=== PATIENT | male | born 1965 | race Caucasian/White ===

== ENCOUNTER → 2017-01-27 | Outpatient (CLI) | payer OTHER ==
[~2017-01-27] MED LIST: LRT5 PO
--- NOTE | 2017-01-28 00:07 | MYOCARDIAL PERFUSION SCAN ---
NUCLEAR STRESS TEST STUDY REQUESTED BY: Dr. Zamarripa TYPE OF STUDY: ONE-DAY NUCLEAR MEDICINE TECHNETIUM-99M CARDIOLITE MYOCARDIAL PERFUSION SCAN. INDICATION: Chest pain. EKG: Baseline, normal sinus rhythm at ventricular rate of 60, possible septal infarct. STRESS EKG: The patient exercised for 9 minutes and 32 seconds achieving 11.8 METS and heart rate daron from 62-148 representing 87% of maximum predicted heart rate. There were no EKG changes consistent with ischemia. No significant arrhythmia. Blood pressure daron to 210/90. TECHNIQUE: For the stress portion of the study, 33.0 mCi of technetium-99m Cardiolite IV was injected at 1345 p.m. on 01/27/2017. Fifteen minutes following injection, imaging of the heart was performed in multiple projections. For the rest portion of the study, 10.4 mCi of technetium-99m Cardiolite was injected IV at 11:45 a.m. One hour following the injection, imaging of the heart was performed in the same projections. FINDINGS: Rotating raw images were reviewed in detail. There was minimal diaphragmatic attenuation. There was no significant gut or liver uptake impacting the inferior imaging border of the heart. No significant extra cardiac pathologic uptake. The short axis, vertical long axis, horizontal long axis images were reviewed in detail. There were no significant perfusion defects noted at rest or with stress. There was no evidence of visual TID LV size was normal with an end-diastolic volume of 127. LV function was normal with an EF of 55% and no regional wall motion abnormalities. IMPRESSION: 1. Normal myocardial perfusion scan with no evidence of exercise-induced ischemia. 2. Normal left ventricular size and function with an ejection fraction of 55% and no regional wall motion abnormalities. 3. Normal exercise EKG. 4. Above average functional capacity. Exercised 9 minutes and 32 seconds achieving 11.8 METS. MTDD
== END | disposition home or self-care (01) ==
LOC: C.NUCL 10:40
PROVIDERS: ATTEND Family Medicine
DX: R07.9 Chest pain, unspecified (principal)

== ENCOUNTER 2019-08-16 13:56 | Observation (INO) ==
[2019-08-16] MEDS ORDERED: HYDROmorphone INJ 1 MG/ML SYRINGE IV STA ×2 (14:19→15:59)
[2019-08-16] MEDS ORDERED: KETOROLAC 30 MG/ML VIAL IV STA (14:19)
[2019-08-16] MEDS ORDERED: CYCLOBENZAPRINE HCL 10 MG TAB PO STA (14:19)
[2019-08-16] MEDS ORDERED: DEXAMETHASONE **PF** INJ 10 MG/ML VIAL IV ONE (14:19)
--- NOTE | 2019-08-16 14:39 | Emergency Department Note ---
History of Present Illness General Chief Complaint: Back Injury/Pain History of Present Illness This patient is a pleasant 53-year-old male who presents to the emergency department via ambulance for evaluation of severe back pain that is radiating down the right leg. The patient has a history of chronic back pain. He had surgery on his lumbar spine approximately 10 years ago. He denies any trauma, however he thinks that he may have injured the back 2 days ago when he was lifting a heavy object. He has tried ibuprofen with minimal relief. Any movement makes the pain worse. He denies any weakness in his extremities. No urinary or bowel incontinence. No saddle paresthesias noted. No fever or recent illnesses. Home Medications Home Medications Medication Instructions Recorded Confirmed Type amlodipine 10 mg PO QAM 08/16/19 08/16/19 History losartan 100 mg PO QAM 08/16/19 08/16/19 History multivitamin [Daily Multi-Vitamin] 1 tab PO QAM 08/16/19 08/16/19 History acetaminophen 650 mg PO Q8H #60 tab 08/19/19 Rx dexamethasone [Decadron] 4 mg PO UD #20 tab 08/19/19 Rx ibuprofen 800 mg PO Q6H PRN #30 tab 08/19/19 Rx oxycodone 5 mg PO Q6H PRN #10 tab 08/19/19 Rx Allergies Allergy/AdvReac Type Severity Reaction Status Date / Time No Known Allergies Allergy Unverified 08/16/19 14:21 Past Med/Surg History Medical History ABCC8-related familial hyperinsulinism, autosomal dominant (Acute) Chronic back pain (Acute) Hyperlipidemia (Acute) Hypertension (Acute) Lumbar disc disease (Acute) Lumbar spinal stenosis (Acute) Prediabetes (Acute) Surgical History Previous back surgery S/P lumbar discectomy (10/18/10) L4 laminectomy with L4-L5 diskectomy, bilateral Family History Mother Coronary heart disease Stroke Myocardial infarction Father Hypertension Leukemia Sister Breast cancer Denies family history of Ovarian cancer Prostate cancer Lung cancer Colorectal cancer Social History (Reviewed 08/22/19 @ 13:28 by WALTER Gasca Preferred Language: Greenlandic Visual Impairment: No Limitations Hearing Ability: Normal Rn School Required: No Beliefs That Will Affect Care: None marital status: Current Living Situation: Spouse current occupational status: employed current occupation: [employer] Feels Safe at Home: Yes Smoking Status: Former smoker Second Hand Exposure: No ; Hx Alcohol Use: Yes Alcohol type: beer Hx Substance Use: No Childhood Exposure to Second-Hand Smoke: Yes Diet Comment: regular caffeine: Yes Dental Care, Regularly: Yes Physical Activity Frequency: 1-2 Times per Week Physical Activity Frequency Comment: walking Seatbelt Use: always Sunscreen Use: No Review of Systems A total of 10 systems reviewed and were otherwise negative Physical Exam Vital Signs Vital Signs - 24 hr 08/16/19 14:00 Temperature 36.7 C Temperature Source Oral Pulse Rate 74 Pulse Rhythm Regular Respiratory Rate 18 Respiratory Effort / Characteristics Non-Labored Spontaneous Respiratory Depth Normal Respiratory Pattern Regular Blood Pressure 162/86 H Blood Pressure Mean 111 Pulse Oximetry 95 Oxygen Delivery Method Room Air Sepsis Recent Fever Within 48 Hours No Sepsis New/Unexplained Change in Mental Status No Sepsis Action Taken by Nursing No Action Required Constitutional Significantly uncomfortable in appearance. Eyes EOM intact bilaterally ENMT external ear and nose normal, oropharynx normal Neck trachea midline Respiratory normal respiratory effort, lungs clear to auscultation Cardiovascular RRR, no murmur, no edema Gastrointestinal (Abdomen) normal bowel sounds, soft, nontender, no hepatosplenomegaly Musculoskeletal no cyanosis or clubbing, extremities motor strength 5/5 Exam is severely limited secondary to pain. Dorsiflexion, plantarflexion intact bilaterally. DP pulse +2 bilaterally. Skin no rashes, warm and dry Neurologic Alert and oriented x3. No focal motor deficits. Psychiatric Acting appropriately Course Course Patient was seen and examined Vital signs including blood pressure were reviewed medications list was verified with patient Medications and imaging ordered Upon reevaluation, the patient was still having significant pain. We discussed disposition options. I updated the patient's via phone. He was ordered more pain medication and still in discomfort. The case was discussed with the hospitalist service in addition to orthopedics. The patient will be evaluated by the hospitalist for likely inpatient pain management. Consultations Consultation #1: Dr. Washington-ortho Consultation #2: [facility] hospitalist Administered Medications Discontinued Medications Acetaminophen (Tylenol) 1,000 mg PO Q8 HORTENSIA Stop: 09/15/19 19:59 Last Admin: 08/19/19 13:59 Dose: 1,000 mg Documented by: [id number] Admin: 08/19/19 05:30 Dose: 1,000 mg Documented by: [id number] Admin: 08/18/19 22:02 Dose: 1,000 mg Documented by: [id number] Admin: 08/18/19 14:11 Dose: 1,000 mg Documented by: [id number] Admin: 08/18/19 06:13 Dose: 1,000 mg Documented by: [id number] Admin: 08/17/19 21:20 Dose: 1,000 mg Documented by: [id number] Admin: 08/17/19 14:11 Dose: 1,000 mg Documented by: [id number] Admin: 08/17/19 05:08 Dose: 1,000 mg Documented by: [id number] Admin: 08/16/19 20:07 Dose: 1,000 mg Documented by: [id number] Amlodipine Besylate (Norvasc) 10 mg PO QAM HORTENSIA Stop: 09/16/19 08:59 Last Admin: 08/19/19 08:39 Dose: 10 mg Documented by: [id number] Admin: 08/18/19 08:39 Dose: 10 mg Documented by: [id number] Admin: 08/17/19 09:13 Dose: 10 mg Documented by: [id number] Cyclobenzaprine HCl (Flexeril) 10 mg PO NOW STA Stop: 08/16/19 14:20 Last Admin: 08/16/19 14:43 Dose: 10 mg Documented by: [id number] Dexamethasone Sodium Phosphate (Decadron Pf) 10 mg IV NOW ONE Stop: 08/16/19 14:20 Last Admin: 08/16/19 14:43 Dose: 10 mg Documented by: [id number] Hydromorphone HCl (Dilaudid) 1 mg IV NOW STA Stop: 08/16/19 14:20 Last Admin: 08/16/19 14:43 Dose: 1 mg Documented by: [id number] Hydromorphone HCl (Dilaudid) 1 mg IV NOW STA Stop: 08/16/19 16:00 Last Admin: 08/16/19 16:04 Dose: 1 mg Documented by: [id number] Hydromorphone HCl (Dilaudid) 1 mg IV Q4H PRN PRN Reason: Pain Stop: 08/30/19 19:51 Last Admin: 08/18/19 12:36 Dose: 1 mg Documented by: [id number] Admin: 08/17/19 21:18 Dose: 1 mg Documented by: [id number] Admin: 08/17/19 09:16 Dose: 1 mg Documented by: [id number] Hydromorphone HCl (Dilaudid) 2 mg IV NOW STA Stop: 08/17/19 08:39 Last Admin: 08/17/19 11:21 Dose: 2 mg Documented by: [id number] Hydromorphone HCl (Dilaudid) Confirm Administered Dose 2 mg .ROUTE .STK-MED ONE Stop: 08/17/19 11:21 Last Admin: 08/17/19 11:41 Dose: Not Given Documented by: [id number] Dexamethasone Sodium Phosphate (12 mg/ Syringe) 3 mls @ 1 mls/min IV QAM HORTENSIA Stop: 09/16/19 08:59 Last Admin: 08/19/19 08:38 Dose: 1 mls/min Documented by: [id number] Admin: 08/18/19 08:38 Dose: 1 mls/min Documented by: [id number] Admin: 08/17/19 09:12 Dose: 1 mls/min Documented by: [id number] Ibuprofen (Motrin) 800 mg PO NOW STA Stop: 08/19/19 10:43 Last Admin: 08/19/19 11:18 Dose: 800 mg Documented by: [id number] Ketorolac Tromethamine (Toradol) 30 mg IV NOW STA Stop: 08/16/19 14:20 Last Admin: 08/16/19 14:43 Dose: 30 mg Documented by: [id number] Ketorolac Tromethamine (Toradol) 30 mg IV Q6H PRN PRN Reason: Pain Stop: 08/21/19 20:14 Last Admin: 08/18/19 16:47 Dose: 30 mg Documented by: [id number] Admin: 08/18/19 10:41 Dose: 30 mg Documented by: [id number] Admin: 08/18/19 03:45 Dose: 30 mg Documented by: [id number] Admin: 08/17/19 14:13 Dose: 30 mg Documented by: [id number] Admin: 08/17/19 04:55 Dose: 30 mg Documented by: [id number] Admin: 08/16/19 21:20 Dose: 30 mg Documented by: [id number] Lorazepam (Ativan) 1 mg PO NOW STA Stop: 08/17/19 08:39 Last Admin: 08/17/19 11:21 Dose: 1 mg Documented by: [id number] Lorazepam (Ativan) Confirm Administered Dose 1 mg .ROUTE .STK-MED ONE Stop: 08/17/19 11:20 Last Admin: 08/17/19 11:41 Dose: Not Given Documented by: [id number] Losartan Potassium (Cozaar) [address] [facility] Stop: 09/16/19 08:59 Last Admin: 08/19/19 08:38 Dose: 100 mg Documented by: [id number] Admin: 08/18/19 08:39 Dose: 100 mg Documented by: [id number] Admin: 08/17/19 09:12 Dose: 100 mg Documented by: [id number] Multivitamins (Multivitamin Tab) [address] [facility] Stop: 09/16/19 08:59 Last Admin: 08/19/19 08:38 Dose: 1 tab Documented by: [id number] Admin: 08/18/19 08:39 Dose: 1 tab Documented by: [id number] Admin: 08/17/19 09:12 Dose: 1 tab Documented by: [id number] Oxycodone HCl (Roxicodone Immediate Rel) 5 mg PO Q4 PRN PRN Reason: Severe Pain Stop: 09/01/19 19:43 Last Admin: 08/19/19 15:24 Dose: 5 mg Documented by: [id number] Admin: 08/19/19 08:37 Dose: 5 mg Documented by: [id number] Admin: 08/18/19 23:49 Dose: 5 mg Documented by: [id number] Medical Decision Making Differential Diagnosis lumbar radiculopathy, AAA, muscular strain, fracture, infection, lumbago, cauda equina and cord compression MDM Narrative This patient is a 53-year-old male that presents to the emergency department with severe back pain radiating down the right leg. He does have a history of chronic pain. On exam, he was slightly hypertensive. There are no infectious symptoms. He was neurovascularly intact. There is no significant trauma, however due to the amount of pain, imaging was ordered. Mild bulging disc as noted above. Unfortunately, I cannot get the patient comfortable enough to ambulate; therefore, orthopedic and hospitalist consultation was felt to be warranted. The patient will stay in the hospital for likely inpatient pain management and Ortho evaluation. Impression & Plan Lumbar spinal stenosis Discharge Plan Visit Data *Final* Discharge Date/Time: 08/16/19 19:18 Chief Complaint: Back Injury/Pain ED Provider: Karlos Barnhart ED Midlevel Provider: Valentina Weaver Discharge Problem: Lumbar spinal stenosis Patient Disposition: Admitted As Inpatient Discharge Instructions Interventions: ED Discharge Assessment Last Done: 08/16/19 19:18 Discharge Problem: Lumbar spinal stenosis Qualifiers: Neurogenic claudication status: without neurogenic claudication Qualified Code(s): M48.061 - Spinal stenosis, lumbar region without neurogenic claudication
--- NOTE | 2019-08-16 15:42 | CT Scan Report ---
CT lumbar spine wo con HISTORY: 53 years-old Male severe back pain hx surgery acute severe back pain COMPARISON: None TECHNIQUE: Multiple axial CT images of the lumbar spine were obtained without the use of IV contrast. A dose lowering technique was used consistent with the principals of NATALEE. FINDINGS: Mild nonspecific bilateral perinephric stranding. Mild thickening of the adrenal glands. No aortic an eurysm or adenopathy. Colonic diverticulosis. Paraspinal tissues are unremarkable. No prevertebral ed lobo or intraperitoneal collection. Straightening of the normal lumbar lordosis. Mild to moderate disc space narrowing at L4-L5 with moderate to severe disc space narrowing at L5-S1 with large posterior disc osteophyte complex formation is noted at these levels. Moderate to severe facet arthrosis of the mid and lower lumbar spine. No acute fracture or subluxation. Evaluation of the central canal and ne uroforamina is better assessed by MRI. T12-L1: No central canal or foraminal narrowing. L1-L2: Mild spondylitic spurring with small posterior annular disc bulge. Mild flattening of the vent ral thecal sac without significant central canal or foraminal narrowing. L2-L3: Spondylitic spurring with small circumferential annular disc bulge, ligamentum flavum thickeni ng and moderate facet arthrosis. Flattening of the ventral thecal sac results in mild central canal s tenosis with mild narrowing of the lateral recesses. Neural foramina appear patent. L3-L4: Mild disc space narrowing spondylitic spurring, circumferential annular disc bulge with modera te to severe facet arthrosis and ligamentum flavum thickening. Flattening of the ventral thecal sac r esults in mild central canal narrowing with mild narrowing of the lateral recesses. Neural foramina a ppear generally patent. L4-L5: Mild to moderate disc space narrowing with spondylitic spurring and large posterior disc osteo phyte complex formation. Ligamentum flavum thickening with moderate to severe facet arthrosis. There is a least mild central canal stenosis with moderate narrowing of the lateral recesses. Mild bilatera l foraminal stenosis. L5-S1: Moderate to severe disc space narrowing with prominent posterior disc osteophyte complex forma tion and severe facet arthrosis with ligamentum flavum thickening. There is flattening of the ventral thecal sac without significant central canal stenosis. Mild left and moderate right lateral recess n arrowing. No significant foraminal stenosis. IMPRESSION: 1. No acute fracture or subluxation. 2. Multilevel discogenic degenerative changes with ligamentum flavum thickening and facet arthrosis a s above. 3. No definite high-grade central canal or foraminal stenosis identified. ACT 112: Negative or not required by law. The above report was generated using voice recognition software. It may contain grammatical, syntax o r spelling errors. Electronically signed by: Abebe Mann M.D. 08/16/2019 3:40 PM
--- NOTE | 2019-08-16 18:53 | Hospitalist Progress Note ---
Date of Service August 16, 2019 Assessment & Plan (1) Back pain: Admit med surg Lumbar pain with radiculopathy to the right leg Pain control - Dilaudid, Toradol, acetaminophen, dexamethasone Consult ortho spine PT/OT (2) Hypertension: Continue home losartan, amlodipine (3) Severe obstructive sleep apnea: Can use home cpap (4) DVT prophylaxis: SCDs Supervising Physician Co-Signing Physician Notes I personally examined the patient and verified all yost points of history and exam, discussed case, and agree with decision making with Garth STROUD. pain in back and down leg. no groin numbness no loss of bowel or bladder vitals noted laying in bed with legs propped up on 2 couch cushions from home. no tenderness in piriformis region. 5/5 great toe raise b/l, ~4+/5 plantar flexion R, 5/5 L back pain/radiculopathy/mild plantar flexion weakness -concern on nerve compression -fortunately no clear "red flag" s/s - so hopefully will get better with steroids, pain control, PT/OT and once possible traction/decompression as outpt. spine consult given severity of baseline structural disease - but doubt will need immediate surgery. otherwise as above Subjective Mr. Cervantes presents with severe lower back pain that radiates down the back of his right leg. He has intermittent weakness and numbness that extends from his right foot to mid carias. He denies any aches, chills, fever, chest pain, palpitations, sob, cough, changes in bowels or bladder. He is only comfortable with his legs up over the couch cushions he brought from home and laying on his back. Pmhx: hypertension Family: degenerative disc, diabetes Social: lives with , chews tobacco a can per/week, drinks a couple of six packs on the weekends. Review of Systems Review of Systems: All systems reviewed & are unremarkable except as noted in HPI & below Physical Exam Physical Exam: General: no distress Eyes: normal inspection, PERLL Respiratory: chest non tender, clear to auscultation, normal breath sounds, no respiratory distress, no accessory muscle use Cardiac: regular rate and rhythm, no rub or gallop, no murmur, no edema, no jvd GI/: active bowel sounds, no abd pain or tenderness, soft, non distended Extremities: normal range of motion, normal strength, non tender Neuro: alert, moves all extremities, Psych:oriented x 3, normal mood and affect Skin: normal color, dry Results & Data Results & Data ([facility]) Vital Signs (Past 12 Hours) Vital Signs Temp Pulse Pulse Resp BP BP Pulse Ox 08/16/19 17:00 80 19 155/88 H 98 08/16/19 15:45 72 19 144/79 H 97 08/16/19 14:00 36.7 C 74 18 162/86 H 95 PG Care Time/CCT Total # of Minutes Spent Total Time Spent with Patient: Total time spent is greater than 50% in coordination of care (as documented) at patient's floor/unit and/or counseling patient: Coding Level of Care Code 71281 Subseq Hosp Care Lvl 3 Diagnoses Back pain M54.9 Hypertension I10 Severe obstructive sleep apnea G47.33 DVT prophylaxis Z29.9
[2019-08-16] MEDS ORDERED: ONDANSETRON INJ 2 MG/ML 2 ML VIAL IV PRN (19:52)
[2019-08-16] MEDS: ACETAMINOPHEN 500 MG TAB PO SCH (20:07)
[2019-08-16] MEDS: KETOROLAC 30 MG/ML VIAL IV PRN (21:20)
[2019-08-17] MEDS: KETOROLAC 30 MG/ML VIAL IV PRN ×2 (04:55→14:13)
[2019-08-17] MEDS: ACETAMINOPHEN 500 MG TAB PO SCH ×3 (05:08→21:20)
[2019-08-17] MEDS ORDERED: LORazepam 1 MG TAB PO STA (08:38)
[2019-08-17] MEDS ORDERED: HYDROmorphone INJ 2 MG/ML SYR/VIAL IV STA (08:38)
[2019-08-17] MEDS: MULTIVITAMIN TAB PO SCH (09:12)
[2019-08-17] MEDS: DEXAMETHASONE SOD PHOSPHATE IV SCH (09:12)
[2019-08-17] MEDS: LOSARTAN POTASSIUM 50 MG TAB PO SCH (09:12)
[2019-08-17] MEDS: AMLODIPINE BESYLATE 5 MG TAB PO SCH (09:13)
[2019-08-17] MEDS: HYDROmorphone INJ 1 MG/ML SYRINGE IV PRN ×2 (09:16→21:18)
--- NOTE | 2019-08-17 10:38 | Orthopedic Consultation ---
Date of Consultation August 17, 2019 Assessment & Plan (1) Lumbar spinal stenosis: At this time he is clear lumbar radiculopathy. CAT scan of the lumbar spine demonstrates evidence of multilevel spondylosis but I am unable to appreciate clear neural compression. We will then attempt an MRI of the lumbar spine hopefully today and make further conditions. Present on Admission?: Yes History of Present Illness Reason for Consultation: Back and right leg pain Attending Physician: Betito Lira, DO History of Present Illness This is a 53-year-old male that states that over the weekend he was lifting up a stroller to assist his . He felt a twinge of pain. Unfortunately over the next few days this progressed to severe back pain radiating to the right buttock posterior lateral thigh extending into his foot. Describes numbness involving the entire right foot. Left lower extremity is asymptomatic. He does have a history of undergoing lumbar surgery in 1999 and again in 2009. He states that this time he is unable to ambulate secondary to the pain in his leg gives way on him with any weightbearing. Allergies Allergy/AdvReac Type Severity Reaction Status Date / Time No Known Allergies Allergy Unverified 08/16/19 14:21 Home Medications Home Medications Medication Instructions Recorded Confirmed Type amlodipine 10 mg PO QAM 08/16/19 08/16/19 History losartan 100 mg PO QAM 08/16/19 08/16/19 History multivitamin [Daily Multi-Vitamin] 1 tab PO QAM 08/16/19 08/16/19 History Patient History Medical History ABCC8-related familial hyperinsulinism, autosomal dominant (Acute) Chronic back pain (Acute) Hyperlipidemia (Acute) Hypertension (Acute) Lumbar disc disease (Acute) Lumbar spinal stenosis (Acute) Prediabetes (Acute) Surgical History Previous back surgery S/P lumbar discectomy (10/18/10) L4 laminectomy with L4-L5 diskectomy, bilateral Family History Mother Coronary heart disease Stroke Myocardial infarction Father Hypertension Leukemia Sister Breast cancer Denies family history of Ovarian cancer Prostate cancer Lung cancer Colorectal cancer Social History Preferred Language: Gambian Visual Impairment: No Limitations Hearing Ability: Normal Duplicator Punch Operator Required: No Beliefs That Will Affect Care: None marital status: Current Living Situation: Spouse current occupational status: employed current occupation: construction mananger Other Information That Helps Us Care for You: No Feels Safe at Home: Yes Safety Concerns: Feels Safe At This Time Smoking Status: Former smoker Do You Dip or Chew Tobacco: Yes (one can per week) ; Second Hand Exposure: No ; Tobacco Cessation Education Requested by Patient: No Hx Alcohol Use: Yes Alcohol type: beer Hx Substance Use: No Childhood Exposure to Second-Hand Smoke: Yes Diet Comment: regular caffeine: Yes Dental Care, Regularly: Yes Physical Activity Frequency: 1-2 Times per Week Physical Activity Frequency Comment: walking Seatbelt Use: always Sunscreen Use: No Physical Exam Physical Exam: Patient is supine in bed with his legs elevated under cushions. This is his only comfortable position. He exhibits reasonable strength to plantar flexion dorsiflexion extensor pollicis longus bilaterally. He has significant tension signs with straight leg raising on the right contralateral signs on the left. Results & Data ([facility]) Vital Signs (Past 12 Hours) Vital Signs Temp Pulse Resp BP Pulse Ox 08/17/19 07:01 36.8 C 77 18 151/77 H 95 08/16/19 23:16 36.7 C 73 16 152/71 H 93
[2019-08-17] MEDS ORDERED: LORazepam 1 MG TAB ONE (11:19)
[2019-08-17] MEDS ORDERED: HYDROmorphone INJ 2 MG/ML SYR/VIAL ONE (11:20)
--- NOTE | 2019-08-17 12:37 | Magnetic Resonance Report ---
MR lumbar spine wo con CLINICAL HISTORY: 53 years-old Male with right leg pain. Acute severe low back pain with radiation i nto the right lower extremity COMPARISON: CT lumbar spine 08/16/2019 TECHNIQUE: Multiplanar, multi sequence MRI of the lumbar spine was performed without intravenous cont rast. FINDINGS: Motion degraded exam. No acute process of the imaged intra-abdominal paraspinal tissues. Conus medull ari terminates at the T12-L1 level. Signal within the cauda equina appears unremarkable. There is no acute fracture, subluxation or significant bone marrow edema. Minimal Modic type I endplate degenera tion at L4-L5. T12-L1: No central canal or neuroforaminal stenosis. L1-L2: Mild spondylitic spurring with mild facet arthrosis. No central canal or foraminal narrowing. L2-L3: Mild spondylitic spurring with small posterior annular disc bulge. Moderate facet arthrosis w ith ligamentum flavum thickening. No central canal or foraminal narrowing. L3-L4: Mild spondylitic spurring with small posterior annular disc bulge. Ligamentum flavum thickeni ng with moderate facet arthrosis. Flattening of the ventral thecal sac without significant central ca nal stenosis. Mild right foraminal narrowing. The left foramen is patent. L4-L5: Moderate disc space narrowing with spondylitic spurring and circumferential annular disc bulg e. There is a superimposed central/left paracentral annular fissure with disc extrusion which measure s up to 1.5 cm transversely and 1.2 cm in cranial caudal dimension extending superior to the inferior endplate of L4 (image 8 of the sagittal series). There is flattening of the ventral thecal sac witho ut significant central canal stenosis. There is however moderate to severe left lateral recess and mo derate right lateral recess narrowing. There is abutment and posterior displacement of the left L5 ne rve root. Moderate right and mild left foraminal narrowing. L5-S1: Moderate disc space narrowing with spondylitic spurring, circumferential annular disc bulge a nd small central disc protrusion. Flattening of the ventral thecal sac without significant central ca nal stenosis. Mild right lateral recess narrowing. The left lateral recess is patent. Bilateral neuro foramina are also patent. IMPRESSION: 1. Motion degraded exam. 2. At L4-L5 there is a disc bulge with superimposed central/left paracentral annular fissure with dis c extrusion which results in moderate to severe left and moderate right lateral recess narrowing. Add itionally, there is abutment with posterior displacement of the left L5 nerve root. Moderate right an d mild left foraminal narrowing at this interspace. 3. No high-grade central canal or foraminal narrowing identified. 4. No acute fracture, subluxation or bone marrow edema. ACT 112: Negative or not required by law. The above report was generated using voice recognition software. It may contain grammatical, syntax o r spelling errors. Electronically signed by: Abebe Mann M.D. 08/17/2019 12:36 PM
--- NOTE | 2019-08-17 18:03 | Hospitalist Progress Note ---
Date of Service August 17, 2019 Assessment & Plan (1) Back pain: lumbar radiculopathy - steroids, pain control, PT/OT, ortho eval appreciated -stable overall continue supportive care (2) Hypertension: Continue home losartan, amlodipine - BP acceptable (3) Severe obstructive sleep apnea: CPAP as per home (4) DVT prophylaxis: SCDs Admission and Anticipated Discharge Date Admission Date: August 16, 2019 Subjective feeling about the same. still intense R leg pain with more or less any movement, thought maybe sl L leg symptoms as well but only seems to be transient and not clearly present. still no loss of bowel or bladder, still no saddle anesthesia no other current complaints Review of Systems Review of Systems: All systems reviewed & are unremarkable except as noted in HPI & below Physical Exam Physical Exam: gen aao pleasant nad heent nc at mmm breathing unlabored no accessory muscles good effort. RLE diminished plantar flexion ~4/5 maybe 4+ (seems slightly weaker than yesterday) and diminished sensation base R great toe plantar surface. LLE intact, 5/5 strength, elsewhere RLE and LLE intact sensation Results & Data Results & Data ([facility]) Vital Signs (Past 12 Hours) Vital Signs Temp Pulse Resp BP Pulse Ox 08/17/19 15:27 97.7 F 83 18 145/75 H 93 08/17/19 07:01 98.2 F 77 18 151/77 H 95 PG Care Time/CCT Total # of Minutes Spent Total Time Spent with Patient: Total time spent is greater than 50% in coordination of care (as documented) at patient's floor/unit and/or counseling patient: Coding Level of Care Code 86100 Subseq Hosp Care Lvl 2 Diagnoses Back pain M54.9 Hypertension I10 Severe obstructive sleep apnea G47.33 DVT prophylaxis Z29.9
[2019-08-18] MEDS: KETOROLAC 30 MG/ML VIAL IV PRN ×3 (03:45→16:47)
[2019-08-18] MEDS: ACETAMINOPHEN 500 MG TAB PO SCH ×3 (06:13→22:02)
[2019-08-18] MEDS: DEXAMETHASONE SOD PHOSPHATE IV SCH (08:38)
[2019-08-18] MEDS: AMLODIPINE BESYLATE 5 MG TAB PO SCH (08:39)
[2019-08-18] MEDS: LOSARTAN POTASSIUM 50 MG TAB PO SCH (08:39)
[2019-08-18] MEDS: MULTIVITAMIN TAB PO SCH (08:39)
--- NOTE | 2019-08-18 10:16 | Orthopedic Progress Note ---
Date of Service August 18, 2019 Assessment & Plan (1) Lumbar disc disease: MRI lumbar spine demonstrates evidence of recurrent disc herniation and neurocompression most impressive at the L4-5 on the right. I discussion today with the patient and his reviewing his MRI findings and clinical course. At this time he is responding to rest and steroids. We will begin physical therapy today allow him to shower today. Hopefully can discharge home tomorrow. We will see him next week in my office. We may consider course of epidural injections. Ultimately if he fails to improve he may require revision decompression possible fusion L4-5 L5-S1. Present on Admission?: Yes Admission and Anticipated Discharge Date Admission Date: August 16, 2019 Subjective Patient pain is somewhat improved today. He is able to tolerate sitting in a chair. Still limited with ambulation. Physical Exam Physical Exam: On exam is in the chair at the bedside. Still significant tension signs straight leg raising on the right. Results & Data ([facility]) Vital Signs (Past 12 Hours) Vital Signs Temp Pulse Resp BP Pulse Ox 08/18/19 07:15 36.7 C 87 16 169/98 H 90 08/17/19 23:28 36.3 C L 71 16 153/84 H 93
[2019-08-18] MEDS: HYDROmorphone INJ 1 MG/ML SYRINGE IV PRN (12:36)
[2019-08-18] MEDS ORDERED: IBUPROFEN 600 MG TAB PO PRN (19:44)
--- NOTE | 2019-08-18 19:49 | Hospitalist Progress Note ---
Date of Service August 18, 2019 Assessment & Plan (1) Back pain: lumbar radiculopathy - steroids, pain control, PT/OT, ortho eval appreciated -improving --> transition to PO meds preferential, if able to have good pain control on PO then hopefully home tomorrow -anticipate possible need for LESI, decompression (2) Hypertension: Continue home losartan, amlodipine - BP acceptable control here (3) Severe obstructive sleep apnea: CPAP as per home (4) DVT prophylaxis: SCDs Admission and Anticipated Discharge Date Admission Date: August 18, 2019 Subjective feeling better still hurts a lot but able to walk reasonably - still quite painful though was able to get in chair ok still no groin numbness no loss of bowel or bladder R foot numbness about the same Review of Systems Review of Systems: All systems reviewed & are unremarkable except as noted in HPI & below Physical Exam Physical Exam: gen aao pleasant nad heent nc at mmm breathing unlabored no accessory muscles good effort neuro/ext cn 2-12 grossly intact gross motor/sensory intact; R toe sl stronger plantar flexion again - back to probably 4+/5, L still normal. sensation still diminished base R great toe. otherwise distal motor and sensory intact throughout. Results & Data Results & Data ([facility]) Vital Signs (Past 12 Hours) Vital Signs Temp Pulse Resp BP Pulse Ox 08/18/19 15:19 97.5 F L 73 18 138/71 96 PG Care Time/CCT Total # of Minutes Spent Total Time Spent with Patient: Total time spent is greater than 50% in coordination of care (as documented) at patient's floor/unit and/or counseling patient: Coding Level of Care Code 30767 Subseq Hosp Care Lvl 3 Diagnoses Back pain M54.9 Hypertension I10 Severe obstructive sleep apnea G47.33 DVT prophylaxis Z29.9
[2019-08-18] MEDS: OXYCODONE HCL IR 5 MG TAB (IMMEDIATE RELEASE) PO PRN (23:49)
[2019-08-19] MEDS: ACETAMINOPHEN 500 MG TAB PO SCH ×2 (05:30→13:59)
[2019-08-19] MEDS: OXYCODONE HCL IR 5 MG TAB (IMMEDIATE RELEASE) PO PRN ×2 (08:37→15:24)
[2019-08-19] MEDS: MULTIVITAMIN TAB PO SCH (08:38)
[2019-08-19] MEDS: DEXAMETHASONE SOD PHOSPHATE IV SCH (08:38)
[2019-08-19] MEDS: LOSARTAN POTASSIUM 50 MG TAB PO SCH (08:38)
[2019-08-19] MEDS: AMLODIPINE BESYLATE 5 MG TAB PO SCH (08:39)
[2019-08-19] MEDS ORDERED: IBUPROFEN 800 MG TAB PO STA (10:42)
--- NOTE | 2019-08-19 11:09 | Orthopedic Progress Note ---
Date of Service August 19, 2019 Assessment & Plan (1) Lumbar spinal stenosis: At this time we are going to attempt to discharge home today. I have scheduled him to follow-up with me on Thursday at my office. At that time we will hopefully initiate a course of epidural steroids and possible vp care management. Present on Admission?: Yes Admission and Anticipated Discharge Date Admission Date: August 18, 2019 Subjective Patient's right leg symptoms have gotten somewhat worse since yesterday. Physical Exam Physical Exam: Patient is in the chair. He is uncomfortable. He has reasonable strength testing. Discontinue tension signs in the right lower extremity. Results & Data ([facility]) Vital Signs (Past 12 Hours) Vital Signs Temp Pulse Resp BP Pulse Ox 08/19/19 07:32 36.6 C 63 20 164/73 H 94
--- NOTE | 2019-08-19 19:30 | Discharge Summary ---
Date of Service August 19, 2019 Principal Diagnosis lumbar radiculopathy Discharge Exam gen aao pleasant nad heent nc at mmm breathing unlabored no accessory muscles good effort strength about the same as yesterday ~4+/5 flex R great toe and plantar flexion otherwise ~5/5 intact Discharge Data Allergies Allergy/AdvReac Type Severity Reaction Status Date / Time No Known Allergies Allergy Unverified 08/16/19 14:21 Consultations 08/16/19 18:32 ED Decision to Admit Stat 08/16/19 20:31 Consult Orthopedic Surgery Routine Ordered Studies 08/16/19 14:19 CT lumbar spine wo con Stat 08/17/19 08:38 MR lumbar spine wo con Urgent Hospital Course (1) Back pain: lumbar radiculopathy - -improving, stable for home -steroids, scheduled tylenol, ibuprofen prn, oxycodone prn breakthrough (see instructions) -ortho f/u, presumed LESI unless improves dramatically, decompression (2) Hypertension: Continue home losartan, amlodipine - BP acceptable control here (3) Severe obstructive sleep apnea: CPAP as per home (4) DVT prophylaxis: SCDs Total Time Total Time Spent Total Time Spent (In Minutes): >30 Discharge Plan Discharge Items Patient Disposition: Home - Self-Care Reason For Visit: BACK PAIN Discharge Diagnosis: lumbar radiculopathy (see below) Activity: Resume your previous activity Activity Comment: as tolerated / be careful because of the pain Non-emergency contact: Primary Care Provider Call non-emergency contact if: you have any medication questions and your symptoms worsen Follow-up/Referrals: Roula Deleon DO [Primary Care Provider] - (Call office for discharge follow up appointment. ) Diet: Regular Addtl Attending Provider Instructions: lumbar radiculopathy -your symptoms and MRI all point to a pinched nerve causing the pain and weakness, but fortunately there are no "red flags" (see below) that would require immediate surgery -while the pain is terrible, it is tolerable right now - and a good percentage of people show surgery-saving levels of improvement with conservative care so we'll proceed as follows: -decadrone (dexamethasone) - a corticosteroid, this works to help reduce inflammation and swelling at the nerve, helping to alleviate nerve compression. the prescribed regimen is a fairly long course - my hope will be as you follow up with Dr Washington next week we may be able to taper the steroids more quickly; however, the Rx is written in case you need the whole duration -tylenol (acetaminophen) - an analgesic, it works "behind the scenes" to knock down the pain overall - in situations like yours, people don't often feel much relief from a dose of tylenol, but when we have a steady regimen of it around the clock, it often does a lot more than you would realize. generally at doses of 2000mg per day or less it's very well tolerated (above that it can be hard on your liver; also i'd have you hold off on any alcohol while you're on the high dosing of the tylenol) -ibuprofen - an anti-inflammatory, this works almost as a "combination" of the decadron (in that it can alleviate some of the inflammation and therefore go after some of the root cause of the pain) and the tylenol (in that anti- inflammatories have a good deal of simply pain-relieving qualities to them as well). we'll have you take it up to every 6 hours as needed, but because it's more potentially side-effect causing than the tylenol, we'll keep it "as needed" so there's a bit of a judgement call each time you need a dose. typically what we see first with side effects is upset stomach (it can cause ulcers - but usually not out of the blue - typically first people start to feel easier indigestion, then nausea or pain at the top of their abdomen, then develop into full blown ulcers) --- so if you feel any of that, back down on the ibuprofen and call dr deleon for further guidance. we'll also want you well hydrated (80 ounces of fluid a day) because it can theoretically interact with your losartan in ways that alter blood flow causing kidney problems -- but we usually only see this happen when people get dehydrated. -oxycodone - a potent narcotic painkiller, this is our "if you're really in trouble" safety net. it can cause drowsiness or constipation. definitely don't take it if you have to drive/work/etc - but if things are really rough it can buy you some relief -steroid injection - while the prescription of steroids helps a good deal, often when people have a pinched nerve like this a directed injection of steroids right where things are bad can help even more -- Dr Washington will be helping facilitate this through their office (he doesn't do it, but one of his partners does). if you're improving well on the medications alone you might not need to have this done, but given how rough things have been there's a pretty good chance they'll need to proceed -decompression - also in Dr Washington's office is a very good chiropractor - Dr Mcrae - who does decompression therapy. decompression is essentially a very specific, very controlled traction that can help open up the areas where the nerves come out. it feels a good deal like being on a traction table, but usually gets better outcomes than regular traction alone. Red Flags: -these would be signs/symptoms/problems that are concerning for serious nerve compression that might require more immediate surgery. as long as you don't have any of these, it is totally OK to continue to try to ride things out conservatively and you're getting better ---loss of bowel control or bladder control ---numbness in your groin, testicles, rectum ---almost " leg" numbness and weakness (what you've got right now is mostly, if not entirely, pain from the compressed nerve without much of any true motor weakness to go along with it - but if you were trying to move your leg and nothing was happening (or, by shades of barahona, you're trying to move it a lot and really only getting a little movement) then it would be cause for immediate evaluation as well. family history of spine arthritis -as we discussed, most of the time there seems to be more of a "prediliction" for folks in certain families to have spine disc disease and arthritis more than others. there is one dominant genetic syndrome - HLA B27 - that doesn't look like what we're seeing with you but is easy enough to send labwork to look for that it might be reasonable to send. otherwise, as we discussed, there are some families that are more prone to arthritises in certain areas, and other times it's more the family culture and habits that set them up more for arthritis. since we can't change genetics, i'd have you looking at what you can control - lifestyle. as you recover from this and are able to start to move more, there is tremendous benefit to be had in working towards regular light cardiovascular exercise (maybe 30 minutes a day) and core strengthening (to take strain off your low back muscles). the benefit from this is actually not just for your back - but also heavily for your blood pressure, sleep apnea, etc! Pending Studies at Discharge: No Stand-Alone Forms: My [facility], Opioid Pain Management, Smoking Cessation Medications and DC Order Prescriptions: New dexamethasone [Decadron] 4 mg tablet 4 mg PO UD Qty: 20 RF: 0 ibuprofen 800 mg tablet 800 mg PO Q6H PRN (Reason: pain) Qty: 30 RF: 0 oxycodone 5 mg tablet 5 mg PO Q6H PRN (Reason: severe pain) Qty: 10 RF: 0 acetaminophen 650 mg tablet extended release 650 mg PO Q8H Qty: 60 RF: 0 Continued multivitamin [Daily Multi-Vitamin] tablet 1 tab PO QAM RF: 0 amlodipine 10 mg tablet 10 mg PO QAM RF: 0 losartan 100 mg tablet 100 mg PO QAM RF: 0 Discharge Orders: Discharge Order (Routine); Ordered 08/19/19 Ordered By: Betito Lira Admission Data Admit Date/Time: 08/18/19 13:33 Attending Provider: Betito Lira Admit Provider: Maribell Vang Primary Care Provider: Roula Deleon Other Providers: Terrence Washington ; Maribell Vang Other Interventions: Discharge Summary Assessment (RN) Last Done: 08/19/19 15:29 DC Date/Time DO NOT enter until pt leaves facility: 08/19/19 15:58 Coding Level of Care Code D/C Day Management >30 mins Diagnoses Back pain M54.9 Hypertension I10 Severe obstructive sleep apnea G47.33 DVT prophylaxis Z29.9
== END 2019-08-19 15:58 | disposition home or self-care (01) ==
LOC: ED 13:56 → 3E 13:56

== ENCOUNTER 2019-10-18 08:34 | Inpatient (IN) ==
--- NOTE | 2019-09-28 20:02 | PAT Medication Instructions ---
Medication Instructions Date of Service September 28, 2019 Home Medications Medication Instructions Recorded ibuprofen 800 mg PO Q6H PRN #30 tab 08/19/19 oxycodone 5 mg PO Q6H PRN #10 tab 08/19/19 amlodipine 10 mg PO QAM losartan 100 mg PO QAM multivitamin [Daily Multi-Vitamin] 1 tab PO QAM ibuprofen 800 mg PO Q6H PRN oxycodone 5 mg PO Q6H PRN tramadol 50 mg PO Q8H PRN ASK your surgeon for instructions ibuprofen 800 mg PO Q6H PRN DO NOT take the morning of surgery losartan 100 mg PO QAM multivitamin [Daily Multi-Vitamin] 1 tab PO QAM Take morning of surgery With a small sip of water, OTHERWISE NOTHING TO EAT OR DRINK AFTER MIDNIGHT: amlodipine 10 mg PO QAM oxycodone 5 mg PO Q6H PRN (okay to take up to 4 hours prior to surgery if needed) tramadol 50 mg PO Q8H PRN (okay to take up to 4 hours prior to surgery if needed) Take evening before surgery oxycodone 5 mg PO Q6H PRN (if needed) tramadol 50 mg PO Q8H PRN (if needed) Other Notes If you have any questions please call us at [phone] or [phone] or [phone] or [phone]
--- NOTE | 2019-09-29 13:08 | Anesthesiology Consultation ---
Date of Service September 29, 2019 Assessment & Plan (1) Encounter for pre-operative examination: Per PAT assessment on 09/28: Travel screen- Lives in [place]. Travel only to [facility]. No known COVID-19 positive contacts. No current COVID-19 related symptoms. No hx of COVID-19 testing. Patient scheduled for preop protocol COVID- 19 testing. Chart Review Chart Review: Acceptable Risk for Surgery (pending surgeon-ordered PCP clearance scheduled 09/29 ([facility])) and Patient seen in Pre Admission Testing Teaching & Discussion Pre-Anesthesia Teaching/Discussion Notes: Instructed NPO after midnight before surgery,except medications with 15 cc of water. Medication instructions provided according to the PAT guidelines. History Surgery Operation Date: 10/18/19 10:05 Proposed Procedures p L4-S1 Decompression Fusion, Spinal Cord Monitoring - Terrence Washington DO Height/Weight Height: 6 ft Weight: 146.6 kg Allergies Allergy/AdvReac Type Severity Reaction Status Date / Time No Known Allergies Allergy Verified 09/27/19 11:53 Medications Home Medications Medication Instructions Recorded Confirmed Last Taken amlodipine 10 mg PO QAM 08/16/19 09/27/19 08/16/19 losartan 100 mg PO QAM 08/16/19 09/27/19 08/16/19 multivitamin [Daily Multi-Vitamin] 1 tab PO QAM 08/16/19 09/27/19 08/16/19 ibuprofen 800 mg PO Q6H PRN #30 tab 08/19/19 09/27/19 Unknown oxycodone 5 mg PO Q6H PRN #10 tab 08/19/19 09/27/19 Unknown tramadol 50 mg PO Q8H PRN 09/27/19 09/27/19 Unknown Past Medical History Medical History (Updated 09/29/19 @ 19:30 by Ksenia Thomas) Chronic back pain Degenerative disc disease Hyperlipidemia Hypertension Lumbar spinal stenosis Morbid obesity Nocturnal hypoxemia RONAK (obstructive sleep apnea) BIPAP Prediabetes Exercise / Class Metabolic Activity III < 4 Walking/Shop/Light housework (walker PRN) Past Family History Family History Mother Coronary heart disease Myocardial infarction Stroke Father Leukemia Hypertension Family history of diabetes mellitus Sister Breast cancer Denies family history of Ovarian cancer Prostate cancer Lung cancer Colorectal cancer Past Surgical History Surgical History History of colonoscopy History of discectomy LUMBAR AREA X 2 Hx of LASIK Past Anesthesia History No Family Hx of Anesthesia Complications and Other Patient reports post-op dyspnea/low O2 sats after colonoscopy at [facility] in 2019. Records scanned into [employer]. Per anesthesia records, MAC sedation used with no anesthesia complications. Post-op evaluation with 94% O2. Patient had known hx of RONAK but was not using a device at that time. Patient has subsequently been prescribed and is using a BIPAP. History of PONV No Hx of PONV and No Hx of Motion Sickness Social History Smoking Status: Former smoker tobacco type: smokeless tobacco Do You Dip or Chew Tobacco: Yes (1+ CAN PER WEEK/ADVISED NPO AM DOS) Smoking End Date: QUIT "A LONG TIME AGO" Hx Alcohol Use: Yes Alcohol type: beer alcohol intake frequency: a few times a month Hx Substance Use: No Review of Systems Patient denies chest pain, shortness of breath, fever, chills, cough, wheezing, palpitations. Physical Exam Vital Signs VITALS BP 136/78 P 69 TEMP 98.7 SP02 94%RA RESP 16 PHYSICAL Full neck and c-spine range of motion. Full TMJ range of motion. TMD 4 finger breaths Mallampati Score 2 Dentition: missing sides Lungs: clear throughout to auscultation Cardiac: regular rate and rhythm, no murmurs noted Spine: normal Carotid arteries: negative bruit Extremities: no edema Testing Laboratory Results 09/29/19 13:49 09/29/19 13:49 PT 10.7 Seconds (9.0-12.0) 09/29/19 13:49 INR 1.0 (0.9-1.1) 09/29/19 13:49 APTT 28.9 Seconds (21.0-31.0) 09/29/19 13:49 Urine Color Yellow 09/29/19 Unknown Urine Appearance Clear (Clear) 09/29/19 Unknown Urine pH 8.0 (4.5-7.5) H 09/29/19 Unknown Ur Specific Wilder 1.020 (1.000-1.030) 09/29/19 Unknown Urine Protein Negative (Negative) 09/29/19 Unknown Urine Glucose (UA) Negative (Negative) 09/29/19 Unknown Urine Ketones Negative (Negative) 09/29/19 Unknown Urine Nitrite Negative (Negative) 09/29/19 Unknown Ur Leukocyte Esterase Negative (Negative) 09/29/19 Unknown Blood Type O Positive 09/29/19 13:49 Antibody Screen NEGATIVE 09/29/19 13:49 Electrocardiogram Date: 09/29/19 NSR at 74bpm. unconfirmed report. Chest X-Ray Date: 09/29/19 Findings: + NAD
--- NOTE | 2019-09-29 14:17 | XRay Report ---
XR chest Pre-admission PA/Lat CLINICAL HISTORY: Preoperative chest COMPARISON STUDY: No previous studies for comparison. FINDINGS: The cardiac and mediastinal contours are normal. There is no evidence of focal pulmonary co nsolidation. There is no evidence of failure. No pleural effusions are visualized.[ IMPRESSION: No active disease in the chest. ACT 112: Negative or not required by law. Electronically signed by: Wili Madrid M.D. 09/29/2019 2:16 PM
[2019-09-29 15:21] LABS: Basophils # (auto) 0.02 K/uL (0-0.2); Basophils % (auto) 0.2 %; Eosinophils # (auto) 0.13 K/uL (0-0.5); Eosinophils % (auto) 1.2 %; Hematocrit (blood only) 44.5 % (42-52); Immature Granulocytes # (auto) 0.06 K/uL (0.00-0.02); Immature Granulocytes % (auto) 0.6 %; Lymphocytes # (auto) 2.65 K/uL (1.2-3.4); Mean Corpuscular Hemoglobin 30.4 pg (25-34); Mean Corpuscular Hgb Conc 33.7 g/dL (32-36); Mean Corpuscular Volume 90.3 fL (80-100); Monocytes # (auto) 0.94 K/uL (0.11-0.59); Monocytes % (auto) 8.9 %; Neutrophils # (auto) 6.81 K/uL (1.4-6.5); Neutrophils % (auto) 64.1 %; Platelet Count 340 K/uL (130-400); RDW Coefficient of Variation 14.7 % (11.5-14.5); RDW Standard Deviation 48.9 fL (36.4-46.3); Red Blood Count 4.93 M/uL (4.7-6.1); White Blood Count 10.61 K/uL (4.8-10.8)
[2019-09-29 15:21] LABS: Appearance Urine Clear (Clear); Bilirubin Urine Negative (Negative); Blood Urine Negative (Negative); Color Urine Yellow; Glucose Urine UA Negative (Negative); Ketones Urine Negative (Negative); Leukocyte Esterase Urine Negative (Negative); Nitrite Urine Negative (Negative); Protein Urine Negative (Negative); Urobilinogen Urine Negative (Negative)
[2019-09-29 15:30] LABS: Calcium 9.3 mg/dl (8.5-10.1); Creatinine Clr Calc Pharmacy 124.8 ml/min; Est GFR (African American) 96.3; Est GFR (Non-African American) 83.1; Potassium 4.2 mmol/L (3.5-5.1)
[2019-09-29 15:33] LABS: Partial Thromboplastin Time 28.9 Seconds (21.0-31.0); Prothrombin Time 10.7 Seconds (9.0-12.0)
--- NOTE | 2019-09-29 23:37 | Electrocardiogram Report ---
Test Reason : Blood Pressure : / mmHG Vent. Rate : 074 BPM Atrial Rate : 074 BPM P-R Int : 170 ms QRS Dur : 092 ms QT Int : 386 ms P-R-T Axes : 001 -25 008 degrees QTc Int : 428 ms Normal sinus rhythm Normal ECG No previous ECGs available Confirmed by Juan Alberto Galloway ([id number]) on 09/29/2019 11:37:20 PM Referred By: Terrence Washington Confirmed By:Juan Alberto Galloway
[~2019-10-18 08:34] MED LIST changes: +ACETAMINOPHEN 500 MG TAB PO SCH; +CEFAZOLIN 3000MG 72.5 ML IV SCH; +CeleBREX 200 MG CAP PO SCH; +GABAPENTIN 900 MG DOSE PO SCH; +HYDROmorphone INJ 2 MG/ML SYR/VIAL ONE; +LR 15ML/HR IV SCH; -LRT5 PO; +MIDAZOLAM HCL 1 MG/ML 2ML VIAL ONE; +fentaNYL citrate 100 MCG/2 ML VIAL ONE
[2019-10-18] MEDS ORDERED: LABETALOL HCL IV 5 MG/ML 20ML IV PRN (09:17)
[2019-10-18] MEDS ORDERED: ONDANSETRON INJ 2 MG/ML 2 ML VIAL IV PRN ×2 (09:17→15:36)
[2019-10-18] MEDS ORDERED: ATROPINE SULFATE 0.1 MG/ML 10ML SYR IV PRN (09:17)
--- NOTE | 2019-10-18 10:14 | History & Physical Bridge Note ---
Date of Service October 18, 2019 History & Physical Bridge Note I have examined the patient, reviewed the History & Physical and in the interval since the performance of the History & Physical I have noted the following changes of clinical significance: no changes noted
--- NOTE | 2019-10-18 10:15 | History & Physical Report ---
Date of Service October 18, 2019 Assessment & Plan (1) Neurogenic claudication due to lumbar spinal stenosis: L4-S1 decompression fusion Present on Admission?: Yes History of Present Illness Chief Complaint: Back and bilateral leg pain Primary Care Provider: Roula Zamarripa DO This is a 53-year-old male who presents with chronic persistent back and leg pain. After failing extensive course of nonoperative care is here for surgical intervention. Allergies Allergy/AdvReac Type Severity Reaction Status Date / Time No Known Allergies Allergy Verified 10/18/19 08:58 Home Medications Home Medications Medication Instructions Recorded Confirmed Type amlodipine 10 mg PO QAM 08/16/19 10/18/19 History losartan 100 mg PO QAM 08/16/19 10/18/19 History multivitamin [Daily Multi-Vitamin] 1 tab PO QAM 08/16/19 10/18/19 History ibuprofen 800 mg PO Q6H PRN #30 tab 08/19/19 10/18/19 Rx tramadol 50 mg PO Q8H PRN 09/27/19 10/18/19 History oxycodone 5 mg PO Q8H PRN 10/18/19 10/18/19 History Past Med/Surg History Family History Mother Coronary heart disease Myocardial infarction Stroke Father Leukemia Hypertension Family history of diabetes mellitus Sister Breast cancer Denies family history of Ovarian cancer Prostate cancer Lung cancer Colorectal cancer Social History Preferred Language: Occitan Visual Impairment: No Limitations Hearing Ability: Normal Quill Skinner Required: No Beliefs That Will Affect Care: None marital status: Current Living Situation: Spouse current occupational status: employed current occupation: [employer] Feels Safe at Home: Yes Safety Concerns: Feels Safe At This Time Smoking Status: Former smoker Tobacco Type: smokeless tobacco ; Do You Dip or Chew Tobacco: Yes (1+ CAN PER WEEK/ADVISED NPO AM DOS) ; Smoking End Date: QUIT "A LONG TIME AGO" ; Second Hand Exposure: Yes ( A CHILD) ; Tobacco Cessation Education Requested by Patient: No Hx Alcohol Use: Yes Alcohol type: beer Alcohol Intake Frequency: Weekly Hx Substance Use: No Childhood Exposure to Second-Hand Smoke: Yes Diet Comment: regular caffeine: Yes Dental Care, Regularly: Yes Physical Activity Frequency: 1-2 Times per Week Physical Activity Frequency Comment: walking Seatbelt Use: always Sunscreen Use: No Physical Exam Physical Exam: Patient is alert and oriented. He has weakness to testing of the right lower extremity compared to the left. Heart is regular rate and rhythm. Lungs clear to auscultation. Results & Data Vital Signs (Past 12 Hours) Vital Signs Temp Pulse Resp BP Pulse Ox 10/18/19 09:14 36.8 C 82 20 144/89 H 95
[2019-10-18] MEDS ORDERED: BUPIVACAINE/EPINEPHRINE 0.25% 1:200,000 30 ML VIAL ONE (10:34)
[2019-10-18] MEDS ORDERED: BACITRACIN INJ 50,000 UNIT VIAL ONE (10:34)
[2019-10-18] MEDS ORDERED: FLOSEAL HEMOSTATIC MATRIX 10ML TOP ONE (11:41)
[2019-10-18] MEDS ORDERED: DEXAMETHASONE SOD INJ 4 MG/ML VIAL ONE (11:52)
[2019-10-18] MEDS ORDERED: GLYCOPYRROLATE 0.2 MG/ML VIAL ONE (11:52)
[2019-10-18] MEDS ORDERED: LARYING-O-JET KIT (LTA) ONE (11:52)
[2019-10-18] MEDS ORDERED: PROPOFOL IV EMULSION 10 MG/ML 20 ML VIAL IV ONE (11:52)
[2019-10-18] MEDS ORDERED: ONDANSETRON INJ 2 MG/ML 2 ML VIAL ONE (11:52)
[2019-10-18] MEDS ORDERED: NEOSTIGMINE METHYLSULFATE 1 MG/ML 10ML VIAL ONE (11:52)
[2019-10-18] MEDS ORDERED: LIDOCAINE HCL 2% 2 ML VIAL/AMP(20MG/ML) INFIL ONE (11:52)
[2019-10-18] MEDS ORDERED: ROCURONIUM BROMIDE 10 MG/ML 5 ML VIAL IV ONE (11:52)
[2019-10-18] MEDS ORDERED: SURGICEL ABSORB HEMOSTAT 2IN X 14IN TOP ONE (13:06)
[2019-10-18] MEDS ORDERED: fentaNYL citrate 100 MCG/2 ML VIAL ONE (13:18)
--- NOTE | 2019-10-18 13:40 | Operative Report ---
Post Operative Report Pre & Post Diagnosis Operation Date: 10/18/19 10:05 Pre-Op Diagnosis: Lumbar spinal stenosis with recurrent disc herniation and radiculopathy. Morbid obesity Post-Op Diagnosis: Same I identified the patient and participated in the time-out.: Yes Procedure Operation Date: 10/18/19 10:05 Actual Procedures p L4-S1 Decompression Fusion, Spinal Cord Monitoring - Terrence Washington DO Surgeon Terrence Washington DO Director Security Management Vilma Thao Estimated Blood Loss 700 Findings See Below The patient is 6 foot tall weighing over 145 kg with a BMI in excess of 43. The patient's body habitus combined with an EBL of greater than 700 cc created significant technical difficulty adding at least 50% increase to the operative time. Specimens None Indications This is a 53-year-old male presents with above-mentioned diagnosis after failing extensive course of nonoperative care is here for surgical invention. Description of Procedure Patient was met with identified informed consent obtained. Patient was then taken to the operative suite underwent an patient placed in a prone position the Ted table on top of the David frame. All bony prominences well-padded eyes inspected to ensure no external pressure placed upon them. This point the lumbar spine was prepped and draped in normal sterile fashion. Sharp dissection with the assistance of Bovie cautery was performed down to and exposing the remaining lamina and transverse processes of L4-L5 and sacral ala bilaterally. I then performed a revision decompression medial facetectomies at the L3-L4, L4- L5 and L5-S1 levels addressing severe lateral recess and foraminal disease. Marked scarring was appreciated along all the roots. Pedicle screws were then placed in L4-L5 and S1 levels bilaterally with assistance of fluoroscopy and appropriately sized lionel placed. By way of a transforaminal approach on the right complete discectomy of L5-S1 was performed endplates curetted to subcortical bleeding bone and a 9 x 26 mm peek cage filled with osteo-bone graft tapped in position. Then proceeded to L [address] of a transforaminal portion radically discectomy performed endplates curetted to subcortical and bone and a 11 x 26 mm peek cage filled with osteo-bone graft ta pped in position. The rods were then locked in final position bilaterally. The transverse processes of L4-L5 and sacral ala burred to subcortical bleeding bone. Infuse collagen sponge mass graft local autograft was then placed in the posterior lateral gutters. 15 round RIP drain inserted. The incision was then closed with 1 Vicryl the fascia 2-0 Vicryl subcutaneously and 4 Monocryl for final skin closure. Steri-Strip sterile dressing was placed. Patient will continue PACU stable condition. Please note Vilma Thao was present at the entire procedure involved the patient positioning complex portions of the surgery and final skin closure. Lastly spinal cord monitoring was utilized that the procedure and no changes noted. I attest to the content of the Intraoperative Record and any orders documented therein. Any exceptions are noted below.
--- NOTE | 2019-10-18 13:57 | Fluoroscopy Report ---
INTRAOPERATIVE RADIOGRAPHS CLINICAL HISTORY: L4-S1 spinal fusion. Fluoroscopy time: 34 seconds. FINDINGS: 3 spot fluoroscopic views of the lumbar spine are presented. There has been discectomy at L 4-L5 and L5-S1 with laminectomy and posterior fusion from L4-S1. Interpedicular screws are present at all levels. The orthopedic hardware appears intact. IMPRESSION: Intraoperative images from L4-S1 spinal fusion as above. Electronically signed by: Chuy Garcia M.D. 10/18/2019 1:55 PM
[2019-10-18] MEDS ORDERED: LABETALOL HCL IV 5 MG/ML 20ML IV ONE (13:58)
[2019-10-18] MEDS: HYDROmorphone INJ 1 MG/ML SYRINGE IV PRN ×3 (14:37→17:22)
--- NOTE | 2019-10-18 14:45 | Anesthesiology Progress Note ---
Date of Service October 18, 2019 Anesthesia Post Procedure Vital Signs Vital Signs: Temp Pulse Pulse Resp BP Pulse Ox 10/18/19 14:35 83 19 159/82 H 94 10/18/19 14:25 72 16 157/77 H 95 10/18/19 14:15 76 17 161/82 H 96 10/18/19 14:05 64 14 128/83 94 10/18/19 13:56 36.2 C L 72 18 175/94 H 94 10/18/19 09:14 36.8 C 82 20 144/89 H 95 Pain Intensity Right Leg: Pain Intensity: 6 Bilateral Lower Leg: Pain Intensity: 7 Transfer of Care Handoff Completed per policy Notes Mental Status: alert / awake / arousable Patient Amnestic to Procedure: Yes Nausea / Vomiting: adequately controlled Pain: adequately controlled Airway Patency, RR, SpO2: stable & adequate BP & HR: stable & adequate Hydration State: stable & adequate Anesthetic Complications: no major complications apparent
[2019-10-18] MEDS ORDERED: bisacodyL 10 MG SUPP PR PRN (15:36)
[2019-10-18] MEDS ORDERED: METOCLOPRAMIDE HCL INJ 5 MG/ML 2 ML VIAL IV PRN (15:36)
[2019-10-18] MEDS ORDERED: ONDANSETRON 4 MG OD TAB PO PRN (15:36)
[2019-10-18] MEDS ORDERED: FAMOTIDINE 20 MG TAB PO PRN (15:36)
[2019-10-18] MEDS ORDERED: DO NOT ADMINISTER FLU VACCINE PRN (15:36)
[2019-10-18] MEDS ORDERED: NALOXONE HCL 0.4 MG/1 ML VIAL/CARP IV PRN (15:36)
[2019-10-18] MEDS ORDERED: LORazepam 0.5 MG/1 ML VIAL IV PRN (15:36)
[2019-10-18] MEDS ORDERED: MAGNESIUM HYDROXIDE SUSP 30 ML UDC PO PRN (15:36)
[2019-10-18] MEDS ORDERED: ACETAMINOPHEN 1,000 MG/100 ML VIAL IV PRN (15:36)
[2019-10-18] MEDS ORDERED: ALUMINUM/MAGNESIUM SUSP 30 ML UDC PO PRN (15:36)
[2019-10-18] MEDS ORDERED: PROMETHAZINE HCL 12.5 MG in SODIUM CHLORIDE 0.9% 50 ML IV PRN (15:36)
[2019-10-18] MEDS ORDERED: SOD PHOSPHATE/SOD BIPHOSPHATE ENEMA 132 ML BTL PR PRN (15:36)
[2019-10-18] MEDS ORDERED: HYDROmorphone INJ 0.5 MG/0.5 ML SYR IV PRN (15:36)
[2019-10-18] MEDS ORDERED: LORazepam 0.5 MG TAB PO PRN (15:36)
[2019-10-18] MEDS ORDERED: DO NOT ADMINISTER PNEUMOCOCCAL VACCINE PRN (15:36)
[2019-10-18] MEDS: CEFAZOLIN 2000MG 2,000 MG/15 ML SYR IV SCH ×2 (15:38→17:24)
[2019-10-18] MEDS: LACTATED RINGER'S 1,000 ML IV SCH ×2 (15:45→22:15)
--- NOTE | 2019-10-18 15:56 | Hospitalist Consultation ---
Date of Consultation October 18, 2019 Assessment & Plan (1) Neurogenic claudication due to lumbar spinal stenosis: (2) Degenerative disc disease: - Pain management, bowel regimen - PT/OT consults - Follow am CBC to monitor for acute blood loss - Continue IV fluids as ordered by primary team (3) Hypertension: -Continue losartan 100 mg every morning starting tomorrow, was held this morning prior to surgery, continue amlodipine 10 mg qam, last taken today (4) Hyperlipidemia: -Patient is not on statin therapy, lipids to be followed by PCP -Patient notes his PCP has asked him to go on a statin in the past however he has been reluctant to do so as he "is not a pill person", he plans to lifestyle modify with diet and exercise (5) Prediabetes: -A1c of 6.3 in February 2019, will check with a.m. labs -Would encourage diet and exercise upon discharge (6) Severe obstructive sleep apnea: -Continue BiPAP at bedtime - brought his own in from home, COVID negative as he is a surgical candidate, can use (7) DVT prophylaxis: - hilton glynn CODE: Full code Dispo: From home, likely to remain in the hospital x 1-2 days Thank you for involving us in the care of Mr. Cervantes. Please do not hesitate to call with questions or concerns. At this time medicine service will follow along. Supervising Physician Co-Signing Physician Notes Patient was seen and examined independently I discussed the case with Kavita Pascual PAC I reviewed pertinent past medical social family history and also the plan of care and agree with the plan of care. Patient status post lumbar spinal surgery for neurogenic claudication. Patient will continue his home noninvasive positive pressure ventilation. Patient also maintains losartan for hypertension and amlodipine. If his blood pressure is low this could be held. Although history of dyslipidemia is not on statins and a history of prediabetes he is not typically on medications at home but will be covered with a sliding scale while here. His last hemoglobin A1c was 6.3 February and if his blood sugars are elevated because of perioperative steroids we will consider carbohydrate conservative diet. Physical exam shows him to be in good condition pain is controlled heart is regular and lungs are clear Any exceptions will be noted below History of Present Illness Reason for Consultation: Medical management Requesting Physician: Dr. Washington Attending Physician: Terrence Washington, DO History of Present Illness This is a 53-year-old male with PMHx of HTN, HLD, DJD, RONAK on BiPAP HS, morbid obesity with BMI of 43.5, prediabetes with A1c = 6.3 in February 2019, who presents for elective L4-S1 decompression fusion of the lumbar spine by Dr. Washington on 10/18/2023 recurrent disc herniation and radiculopathy. Pt reports doing well overall but that he has some left leg pain since the surgery and is feeling it a little bit more around the incision. His right leg feels great. He denies any numbness or tingling. He can move his toes, ankles, knees and at the hips bilaterally. He reports having gained about 40 pounds in the past 2 years, and plans to modify his diet and exercise more after his back heals. He has brought his home CPAP/BiPAP machine with him, which he uses at night for sleep apnea. Allergies Allergy/AdvReac Type Severity Reaction Status Date / Time No Known Allergies Allergy Verified 10/18/19 08:58 Home Medications Home Medications Medication Instructions Recorded Confirmed Type amlodipine 10 mg PO QAM 08/16/19 10/18/19 History losartan 100 mg PO QAM 08/16/19 10/18/19 History multivitamin [Daily Multi-Vitamin] 1 tab PO QAM 08/16/19 10/18/19 History ibuprofen 800 mg PO Q6H PRN #30 tab 08/19/19 10/18/19 Rx tramadol 50 mg PO Q8H PRN 09/27/19 10/18/19 History oxycodone 5 mg PO Q8H PRN 10/18/19 10/18/19 History Patient History Family History Mother Coronary heart disease Myocardial infarction Stroke Father Leukemia Hypertension Family history of diabetes mellitus Sister Breast cancer Denies family history of Ovarian cancer Prostate cancer Lung cancer Colorectal cancer Social History Preferred Language: Gibraltarian Visual Impairment: No Limitations Hearing Ability: Normal Laceworker Required: No Beliefs That Will Affect Care: None marital status: Current Living Situation: Spouse current occupational status: employed current occupation: [employer] Feels Safe at Home: Yes Safety Concerns: Feels Safe At This Time Smoking Status: Former smoker Tobacco Type: smokeless tobacco ; Do You Dip or Chew Tobacco: Yes (1+ CAN PER WEEK/ADVISED NPO AM DOS) ; Smoking End Date: QUIT "A LONG TIME AGO" ; Second Hand Exposure: Yes ( A CHILD) ; Tobacco Cessation Education Requested by Patient: No Hx Alcohol Use: Yes Alcohol type: beer Alcohol Intake Frequency: Weekly Hx Substance Use: No Childhood Exposure to Second-Hand Smoke: Yes Diet Comment: regular caffeine: Yes Dental Care, Regularly: Yes Physical Activity Frequency: 1-2 Times per Week Physical Activity Frequency Comment: walking Seatbelt Use: always Sunscreen Use: No Review of Systems Review of Systems: Constitutional: No fever, sweats or chills Eyes: No diplopia, no worsening or blurred vision ENT: normal hearing, no trouble swallowing Respiratory: No cough, sputum, dyspnea at rest or on exertion Cardiovascular: No chest pain, tightness or palpitations Abdomen: No pain, nausea, vomiting, diarrhea or constipation : Colón catheter in place draining clear yellow urine Musculoskeletal: + As per HPI, no joint pain, calf pain, swelling Neurologic: No weakness, numbness/tingling, or balance problems, + has brought a walker in from home Skin: No rash or itch Physical Exam Physical Exam: General: awake, alert, no apparent distress, obese, BMI 43.5 Head: Normocephalic, atraumatic ENT: PERRL, EOMI, no pharyngeal exudate, mucous membranes slightly dry Chest: Clear to auscultation, on 2L via NC, no adventitious breath sounds Cardiac: Regular rate and rhythm, no murmur, no JVD, normal peripheral pulses, good capillary refill Abdominal: NABS x 4 quadrants, soft, nondistended, nontender to palpation, no rebound, guarding or tenderness Extremities: Normal inspection, no peripheral edema or erythema, calfs nontender to palpation Psych: Normal mood and affect Neuro: AAO x 3, strength intact bilaterally and rated 5/5, no motor deficits, speech is clear, no peripheral sensory deficits Skin: no rash or erythema Results & Data Results & Data ([facility]) Vital Signs (Past 12 Hours) Vital Signs Temp Pulse Pulse Resp BP Pulse Ox 10/18/19 15:05 84 20 148/87 H 94 10/18/19 14:55 36.5 C 85 20 161/90 H 92 10/18/19 14:45 82 17 151/77 H 93 10/18/19 14:35 83 19 159/82 H 94 10/18/19 14:25 72 16 157/77 H 95 10/18/19 14:15 76 17 161/82 H 96 10/18/19 14:05 64 14 128/83 94 10/18/19 13:56 36.2 C L 72 18 175/94 H 94 10/18/19 09:14 36.8 C 82 20 144/89 H 95 PG Care Time/CCT Total # of Minutes Spent Total Time Spent with Patient: Total time spent is greater than 50% in coordination of care (as documented) at patient's floor/unit and/or counseling patient: Coding Level of Care Code 56971 Inpt Consult Level 3 Diagnoses Neurogenic claudication due to lumbar spinal stenosis M48.062 Degenerative disc disease Hypertension I10 Hyperlipidemia E78.5 Prediabetes R73.03 Severe obstructive sleep apnea G47.33 DVT prophylaxis Z29.9
[2019-10-18] MEDS: ACETAMINOPHEN 500 MG TAB PO PRN (20:14)
[2019-10-18] MEDS: TRAMADOL HCL 50 MG TABLET PO PRN (20:14)
[2019-10-18] MEDS: DOCUSATE SODIUM/SENNA 50/8.6MG TAB PO SCH (20:14)
[2019-10-19] MEDS: CEFAZOLIN 2000MG 2,000 MG/15 ML SYR IV SCH (01:57)
[2019-10-19] MEDS: TRAMADOL HCL 50 MG TABLET PO PRN ×3 (01:58→12:28)
[2019-10-19] MEDS: POLYETHYLENE (MIRALAX) 17 GM PACK PO SCH ×4 (04:46→23:48)
[2019-10-19] MEDS: LACTATED RINGER'S 1,000 ML IV SCH (04:46)
[2019-10-19] MEDS: ACETAMINOPHEN 500 MG TAB PO PRN (04:51)
[2019-10-19 06:08] LABS: Basophils # (auto) 0.02 K/uL (0-0.2); Basophils % (auto) 0.1 %; Hematocrit (blood only) 39.2 % (42-52); Hemoglobin 13.2 g/dL (14.0-18.0); Immature Granulocytes # (auto) 0.05 K/uL (0.00-0.02); Immature Granulocytes % (auto) 0.3 %; Lymphocytes # (auto) 1.54 K/uL (1.2-3.4); Lymphocytes % (auto) 9.3 %; Mean Corpuscular Hemoglobin 30.8 pg (25-34); Mean Corpuscular Hgb Conc 33.7 g/dL (32-36); Mean Corpuscular Volume 91.4 fL (80-100); Mean Platelet Volume 9.3 fL (7.4-10.4); Monocytes # (auto) 1.59 K/uL (0.11-0.59); Monocytes % (auto) 9.6 %; Neutrophils # (auto) 13.42 K/uL (1.4-6.5); Neutrophils % (auto) 80.7 %; Platelet Count 336 K/uL (130-400); RDW Coefficient of Variation 14.8 % (11.5-14.5); RDW Standard Deviation 49.4 fL (36.4-46.3); Red Blood Count 4.29 M/uL (4.7-6.1); White Blood Count 16.62 K/uL (4.8-10.8)
[2019-10-19 06:37] LABS: BUN Creatinine Ratio 16.8 (10-20); Calcium 9.3 mg/dl (8.5-10.1); Creatinine Clr Calc Pharmacy 128.1 ml/min; Est GFR (African American) 99.8; Est GFR (Non-African American) 86.2; Potassium 3.8 mmol/L (3.5-5.1)
[2019-10-19 07:40] LABS: Estimated Average Glucose 128 mg/dl; Hemoglobin A1C 6.1 % (4.5-5.6)
[2019-10-19] MEDS: AMLODIPINE BESYLATE 5 MG TAB PO SCH (08:02)
[2019-10-19] MEDS: MULTIVITAMIN TAB PO SCH (08:02)
[2019-10-19] MEDS: LOSARTAN POTASSIUM 50 MG TAB PO SCH (08:02)
--- NOTE | 2019-10-19 08:34 | Anesthesiology Progress Note ---
Date of Service October 19, 2019 Anesthesia Post Procedure Vital Signs Vital Signs: Temp Pulse Pulse Resp BP BP Pulse Ox 10/19/19 08:06 36.6 C 90 14 144/78 H 92 10/19/19 08:00 10/19/19 02:26 36.9 C 86 18 124/73 93 10/18/19 23:15 36.5 C 86 16 137/72 93 10/18/19 19:43 10/18/19 19:41 36.8 C 87 18 121/71 94 10/18/19 17:20 92 H 14 123/73 93 10/18/19 16:20 36.7 C 89 18 166/85 H 92 10/18/19 15:20 36.8 C 87 14 147/83 H 94 10/18/19 15:05 84 20 148/87 H 94 10/18/19 14:55 36.5 C 85 20 161/90 H 92 10/18/19 14:45 82 17 151/77 H 93 10/18/19 14:35 83 19 159/82 H 94 10/18/19 14:25 72 16 157/77 H 95 10/18/19 14:15 76 17 161/82 H 96 10/18/19 14:05 64 14 128/83 94 10/18/19 13:56 36.2 C L 72 18 175/94 H 94 10/18/19 09:14 36.8 C 82 20 144/89 H 95 Pulse Ox 10/19/19 08:06 10/19/19 08:00 90 10/19/19 02:26 10/18/19 23:15 10/18/19 19:43 91 10/18/19 19:41 10/18/19 17:20 10/18/19 16:20 10/18/19 15:20 92 10/18/19 15:05 10/18/19 14:55 10/18/19 14:45 10/18/19 14:35 10/18/19 14:25 10/18/19 14:15 10/18/19 14:05 10/18/19 13:56 10/18/19 09:14 Pain Intensity Right Leg: Pain Intensity: 6 Back: Pain Intensity: 6 Bilateral Lower Leg: Pain Intensity: 6 Notes Mental Status: alert / awake / arousable and participated in evaluation Patient Amnestic to Procedure: Yes Nausea / Vomiting: adequately controlled Pain: adequately controlled Airway Patency, RR, SpO2: stable & adequate BP & HR: stable & adequate Hydration State: stable & adequate Anesthetic Complications: no major complications apparent and Pt Satisfied with anesthetic care
[2019-10-19] MEDS: OXYCODONE HCL IR 5 MG TAB (IMMEDIATE RELEASE) PO PRN ×3 (09:29→23:53)
--- NOTE | 2019-10-19 12:17 | Hospitalist Progress Note ---
Date of Service October 19, 2019 Assessment & Plan (1) Neurogenic claudication due to lumbar spinal stenosis: * POD #1 s/p L4-S1 decompression and fusion with Dr. Washington 10/17. EBL 700mL. Pre-op h/h 15/44.5 * PT/OT/pain management/DVT prophylaxis per primary team * H/h stable, but dropped to 13.2/39.2 -- likely acute blood loss anemia secondary to surgery in combination with IVF. RIP output 340mL. * WBC elevated to 16.6 in setting of stress/surgery -- also to be getting steroids. No s/sx infection. 92% on RA. Afebrile (2) Acute blood loss anemia: * See above (3) Degenerative disc disease: * Pain management, bowel regimen per primary service * PT/OT as above (4) Hypertension: * Chronic. * Stable, currently 126/65 * Continue losartan 100mg PO, amlodipine 10mg PO * Continue to monitor (5) Hyperlipidemia: * Patient is not on statin therapy, lipids to be followed by PCP. Per discussion with patient he does not want to take any additional pills at this time and plans on modifying his activity following surgery. Discussed elevated risks associated with his pre-diabetes and that recommendations are to initiate statin therapy based on most recent lipid profile (cholesterol 203, triglycerides 294 Feb 2019) * Patient agreeable to follow up with PCP and repeat labs prior to initiating statin at this time (6) Prediabetes: * A1c of 6.3 in February 2019 --> down to 6.1 on repeat * Glucose 141 on AM labs --> patient also to be receiving IV dexamethasone * BSG AC/HS with ISS while inpatient * Likely to be able to be discharged without any additional agents and would encourage diet/activity to help continue to bring down A1c * Monitor sugars (7) Severe obstructive sleep apnea: * Continue BiPAP at bedtime - brought his own in from home, COVID negative as he is a surgical candidate, can use (8) DVT prophylaxis: * teds, scds Discharge in next 1-2 days per primary service. Thank you for involving us in the care of Mr. Cervantes. Hospitalist service will sign off at this time but will chart check peripherally. Please call with any questions/concerns. Admission and Anticipated Discharge Date Admission Date: October 18, 2019 Supervising Physician Co-Signing Physician Notes PA Supervision Note: I did not personally see or examine the patient today, but I verified all yost points of DOM Hallman's assessment and plan with the following exceptions/additions: None Subjective Patient evaluated this morning. Doing well. States he was up with therapy and walked the halls this morning. Pain tolerable with pain medication, although he notes pain moreso down left leg where before surgery it was primarily on his right side. . States he has not passed any gas or BM since surgery but admits he has had some stool softener this morning. Denies any fevers, chills, chest pain, shortness of breath, abdominal pain, n/v/d or dysuria at this time. Review of Systems Review of Systems: All systems reviewed & are unremarkable except as noted in HPI & below Physical Exam Constitutional: WD/WN, vitals as above + obese; no acute distress Eyes: PERRL, conjunctivae normal, anicteric sclerae Neck: trachea midline, no thyromegaly Respiratory: normal respiratory effort, lungs clear to auscultation Cardiovascular: RRR, no murmur, no edema Gastrointestinal (Abdomen): normal bowel sounds, soft, nontender, no hepatosplenomegaly Musculoskeletal: good strength b/l LE calves non-tender to palpation NVI 2+ pulses pt, dp pulses bilaterally RIP drain with bloody output, approximately 75cc Skin: warm, dry Neurologic: patellar DTR's 2+ bilat, sensation intact and PERRL, EOMI, accommodation nl, no face palsy, no dysarthria Psychiatric: A+Ox3, euthymic affect Lymphatic: no cervical or axillary lymphadenopathy Results & Data Results & Data ([facility]) Vital Signs (Past 12 Hours) Vital Signs Temp 36.9 C 10/19/19 15:49 Pulse 87 10/19/19 15:49 Resp 16 10/19/19 15:49 BP 126/65 10/19/19 15:49 Pulse Ox 92 10/19/19 15:49 Intake & Output 10/18/19 10/19/19 10/19/19 18:59 06:59 18:59 Intake Total 2372.5 / 5072.5 2700 / 5072.5 595 / 595 Output Total 1150 / 3540 2390 / 3540 70 / 70 Balance 1222.5 / 1532.5 310 / 1532.5 525 / 525 Weight 145.558 kg Intake: IV 72.5 / 2022.5 1949 / 2021. Ancef 3000MG 72.5 ml @ 130 mls/ 72.5 / 72.5 hr IV PREOP HORTENSIA Rx#:[id number] Lr 1,000 ml @ 150 mls/hr IV . 1948 [id number] HORTENS[facility] Rx#:[id number] IV Perioperative 2300 / 2300 Oral 750 / 750 595 / 595 Output: Urine 400 / 400 Estimated Blood Loss 700 / 700 Urine Amount (Catheter) 350 2099 1750 / 2100 Colón/Indwelling 2099 1750 / 2100 Drain Output 100 / 340 240 / 340 70 / 70 Back RIP 100 / 340 240 / 340 70 / 70 Laboratory Results 10/19/19 10/19/19 10/19/19 Range/Units 05:39 05:39 05:39 WBC 16.62 H (4.8-10.8) K/uL RBC 4.29 L (4.7-6.1) M/uL Hgb 13.2 L (14.0-18.0) g/dL Hct 39.2 L (42-52) % MCV 91.4 (80-100) fL MCH 30.8 (25-34) pg MCHC 33.7 (32-36) g/dL RDW Std Deviation 49.4 H (36.4-46.3) fL RDW Coeff of Efra 14.8 H (11.5-14.5) % Plt Count 336 (130-400) K/uL MPV 9.3 (7.4-10.4) fL Immature Gran % (Auto) 0.3 % Neut % (Auto) 80.7 % Lymph % (Auto) 9.3 % Flagler % (Auto) 9.6 % Eos % (Auto) 0.0 % Baso % (Auto) 0.1 % Neut # (Auto) 13.42 H (1.4-6.5) K/uL Lymph # (Auto) 1.54 (1.2-3.4) K/uL Flagler # (Auto) 1.59 H (0.11-0.59) K/uL Eos # (Auto) 0.00 (0-0.5) K/uL Baso # (Auto) 0.02 (0-0.2) K/uL Immature Gran # (Auto) 0.05 H (0.00-0.02) K/uL Sodium 137 (136-145) mmol/L Potassium 3.8 (3.5-5.1) mmol/L Chloride 102 (98-107) mmol/L Carbon Dioxide 25 (21-32) mmol/L Anion Gap 9.0 (3-11) BUN 17 (7-18) mg/dl Creatinine 1.00 (0.6-1.4) mg/dl Est Cr Clr Drug Dosing 128.1 ml/min Est GFR ( Amer) 99.8 Est GFR (Non-Af Amer) 86.2 BUN/Creatinine Ratio 16.8 (10-20) Glucose 141 H (70-99) mg/dl Estimat Average Glucose 128 mg/dl Hemoglobin A1c 6.1 H (4.5-5.6) % Calcium 9.3 (8.5-10.1) mg/dl PG Care Time/CCT Total # of Minutes Spent Total Time Spent with Patient: Total time spent is greater than 50% in coordination of care (as documented) at patient's floor/unit and/or counseling patient: Coding Level of Care Code 35177 Subseq Hosp Care Lvl 3 Diagnoses Neurogenic claudication due to lumbar spinal stenosis M48.062 Acute blood loss anemia D62 Degenerative disc disease Hypertension I10 Hyperlipidemia E78.5 Prediabetes R73.03 Severe obstructive sleep apnea G47.33 DVT prophylaxis Z29.9
--- NOTE | 2019-10-19 12:22 | Orthopedic Progress Note ---
Date of Service October 19, 2019 Assessment & Plan (1) Neurogenic claudication due to lumbar spinal stenosis: At this time we will continue physical therapy monitor his RIP output anticipate discharge home in the next few days. Present on Admission?: Yes Admission and Anticipated Discharge Date Admission Date: October 18, 2019 Subjective Patient's back pain is controlled leg pain improved. Physical Exam Physical Exam: Patient is in the chair at the bedside. Is good strength testing. Appears comfortable. Results & Data ([facility]) Vital Signs (Past 12 Hours) Vital Signs Temp Pulse Resp BP Pulse Ox Pulse Ox 10/19/19 08:06 36.6 C 90 14 144/78 H 92 10/19/19 08:00 90 10/19/19 02:26 36.9 C 86 18 124/73 93
[2019-10-19] MEDS ORDERED: GLUCAGON FOR INJ 1 MG VIAL SQ PRN (15:48)
[2019-10-19] MEDS ORDERED: GLUCOSE 10 TABS/TUBE PO PRN (15:48)
[2019-10-19] MEDS ORDERED: CARBOHYDRATES FOR HYPOGLYCEMIA PO PRN (15:48)
[2019-10-19] MEDS ORDERED: DEXTROSE 50% 50 ML SYRINGE IV PRN (15:48)
[2019-10-19] MEDS ORDERED: GLUCOSE 40% GEL 15 GM TUBE PO PRN (15:48)
[2019-10-19] MEDS: HYDROmorphone INJ 1 MG/ML SYRINGE IV PRN ×2 (16:33→21:29)
[2019-10-19] MEDS: INSULIN ASPART 100 UNITS/ML 3 ML PEN SC SCH ×2 (18:08→22:23)
[2019-10-19] MEDS: DOCUSATE SODIUM/SENNA 50/8.6MG TAB PO SCH (21:29)
[2019-10-20] MEDS: HYDROmorphone INJ 1 MG/ML SYRINGE IV PRN (01:53)
[2019-10-20] MEDS: POLYETHYLENE (MIRALAX) 17 GM PACK PO SCH ×4 (05:23→23:42)
[2019-10-20] MEDS: DEXAMETHASONE SOD PHOSPHATE 8 MG in SYRINGE 0 ML IV SCH ×4 (05:47→21:43)
[2019-10-20 06:01] LABS: Hematocrit (blood only) 39.9 % (42-52); Hemoglobin 13.8 g/dL (14.0-18.0); Mean Corpuscular Hemoglobin 31.4 pg (25-34); Mean Corpuscular Hgb Conc 34.6 g/dL (32-36); Mean Corpuscular Volume 90.9 fL (80-100); Mean Platelet Volume 9.2 fL (7.4-10.4); Platelet Count 328 K/uL (130-400); RDW Coefficient of Variation 15.2 % (11.5-14.5); RDW Standard Deviation 50.4 fL (36.4-46.3); Red Blood Count 4.39 M/uL (4.7-6.1); White Blood Count 16.59 K/uL (4.8-10.8)
[2019-10-20] MEDS: OXYCODONE HCL IR 5 MG TAB (IMMEDIATE RELEASE) PO PRN ×4 (06:24→23:45)
--- NOTE | 2019-10-20 07:43 | Orthopedic Progress Note ---
Date of Service October 20, 2019 Assessment & Plan (1) Neurogenic claudication due to lumbar spinal stenosis: At this time we will continue physical therapy will begin Neurontin 300 mg p.o. 3 times daily as well as continue Decadron continue activity as tolerated possibly discontinue his drain tomorrow. Present on Admission?: Yes Admission and Anticipated Discharge Date Admission Date: October 18, 2019 Subjective Back pain controlled struggling with some left sciatica with ambulation. Physical Exam Physical Exam: On exam is excellent strength testing bilateral extremities. Does appear comfortable. Results & Data ([facility]) Vital Signs (Past 12 Hours) Vital Signs Temp Pulse Resp BP BP Pulse Ox 10/20/19 07:10 37.2 C 82 18 125/77 93 10/20/19 00:32 37.0 C 85 18 121/74 94
[2019-10-20] MEDS: INSULIN ASPART 100 UNITS/ML 3 ML PEN SC SCH ×4 (08:51→21:40)
[2019-10-20] MEDS: GABAPENTIN 300 MG CAP PO SCH ×3 (08:52→21:43)
[2019-10-20] MEDS: LOSARTAN POTASSIUM 50 MG TAB PO SCH (08:53)
[2019-10-20] MEDS: AMLODIPINE BESYLATE 5 MG TAB PO SCH (08:53)
[2019-10-20] MEDS: MULTIVITAMIN TAB PO SCH (08:54)
[2019-10-20] MEDS: DOCUSATE SODIUM/SENNA 50/8.6MG TAB PO SCH (21:42)
[2019-10-21] MEDS: DEXAMETHASONE SOD PHOSPHATE 8 MG in SYRINGE 0 ML IV SCH (05:17)
[2019-10-21] MEDS: POLYETHYLENE (MIRALAX) 17 GM PACK PO SCH ×2 (05:17→11:33)
[2019-10-21] MEDS: OXYCODONE HCL IR 5 MG TAB (IMMEDIATE RELEASE) PO PRN ×2 (07:30→11:32)
[2019-10-21] MEDS: GABAPENTIN 300 MG CAP PO SCH (07:44)
[2019-10-21] MEDS: AMLODIPINE BESYLATE 5 MG TAB PO SCH (07:45)
[2019-10-21] MEDS: LOSARTAN POTASSIUM 50 MG TAB PO SCH (07:45)
[2019-10-21] MEDS: MULTIVITAMIN TAB PO SCH (07:46)
[2019-10-21] MEDS: INSULIN ASPART 100 UNITS/ML 3 ML PEN SC SCH ×2 (08:51→12:28)
--- NOTE | 2019-10-21 10:53 | Discharge Summary ---
Date of Service October 21, 2019 Admission HPI Per Admitting Provider This is a 53-year-old male who presents with chronic persistent back and leg pain. After failing extensive course of nonoperative care is here for surgical intervention. Principal Diagnosis Lumbar spinal stenosis with neurogenic claudication Discharge Data Allergies Allergy/AdvReac Type Severity Reaction Status Date / Time No Known Allergies Allergy Verified 10/18/19 08:58 Consultations 10/18/19 15:36 Consult Case Management - Discharge Planning Routine 10/18/19 15:48 Consult Hospitalist Routine Procedures Performed Operation Date: 10/18/19 10:05 Actual Procedures p L4-S1 Decompression Fusion, Spinal Cord Monitoring - Terrence Washington DO Ordered Studies 10/18/19 10:05 FL fluoroscopy <1hr Routine FL lumbar spine 2-3V Routine Hospital Course (1) Neurogenic claudication due to lumbar spinal stenosis: Patient underwent revision decompression fusion tolerated this well was taken to orthopedic for postoperative. Postop day 1 he was up and ambulating progressed to postop day #2 on postop day #3 RIP drain decreasing probably. Pain better controlled. Functioning well. Good strength testing. Subsequently discharged home. Discharge orders and instructions from the chart for further review. Total Time Total Time Spent Total Time Spent (In Minutes): 20 minutes Discharge Plan Discharge Items Patient Disposition: Home - Self-Care Reason For Visit: Disc Degeneration, Lumbar Region Discharge Diagnosis: Lumbar spinal stenosis with neurogenic claudication Activity: As commented below Non-emergency contact: Primary Care Provider Call non-emergency contact if: you have any medication questions Follow-up/Referrals: Roula Zamarripa DO [Primary Care Provider] - Diet: Regular Addtl Attending Provider Instructions: ACTIVITY RECOMMENDATIONS: SELF CARE INSTRUCTIONS AFTER THORACIC/LUMBAR FUSIONS 1. You may walk to your tolerance. It is good exercise for your legs and back. Expect some back and intermittent leg aches and pains. 2. You may perform "counter-top" level activities (make a sandwich, prisca with a project, etc.). 3. No bending or lifting of more than 10 pounds or back twisting of any nature (roll like a log when turning in bed). 4. You may ride in a car for 20-30 minutes at a time. No driving until after your first visit with your doctor. 5. Frequent changes of position and restricting sitting to 30 minutes at a time will help limit the amount of back spasms and stiffness you may experience. 6. You may discontinue the use of ambulatory aids (cane, crutches, etc.) once your strength and confidence allow. 7. You may sharepoint web developer the shower and let water strike your incision when you arrive home at least once daily. Do not take a tub bath, sit in a hot tub or go into a swimming pool until after your first recheck in the office. SPECIAL CARE INSTRUCTIONS: VERY IMPORTANT TO READ AND REVIEW A. Your surgical incision has been closed with a cosmetic suture under the skin that will dissolve in about 6 weeks. In 14 days, you can use a pair of clean scissors and cut the suture that is left outside of the skin at the ends of your incision. 1. The small skin tapes can be removed 7 days after surgery if they have not fallen off by that point. 2. You may keep the wound open to air as much as possible to promote healing after post-op day number 5 unless told otherwise by your doctor. 3. If you think the wound looks like it is becoming infected (redness or worsening drainage) and/or you are experiencing fever, chill or worsening back pain and muscle spasms, contact the office so that we may evaluate you as soon as possible. B. Complications are uncommon, but please contact us if you have any signs or symptoms of: 1. wound infection (fever higher than 102.5 degrees F, redness, separation of wound, drainage, or increasing pain from the incision) 2. blood clots in legs (pain, swelling, redness and warmth in legs) 3. urinary tract infection (fever higher than 102.5 degrees F, burning upon urination or increased frequency of urination) 4. nerve problems (inability to walk on your toes or heels, numbness, loss of bowel or bladder control) 5. any other symptoms that concern you C. Please call the office at if you have any concerns or questions about your operation or recovery. D. No smoking! Smoking drastically decreases the chance of a solid fusion. E. Do not take any anti-inflammatory medications (Indocin, Advil, Motrin, Aspirin, Naprosyn, etc.) as these may inhibit the chance of a solid fusion. Tylenol is okay to take for pain. MANAGING PAIN AFTER SPINAL SURGERY 1. Narcotic medication is intended for short-term use and will be provided for surgical pain. Surgical pain usually lasts for a period of 4-6 weeks. Narcotic medication includes Percocet, Vicodin, Darvocet, Tylenol #3 or Lortab. 2. Longer-term pain is more appropriately treated with non-narcotic medication such as Tylenol ES. 3. Muscle spasm is not appropriately treated with narcotics. Muscle relaxers such as Soma, Flexeril or Skelaxin can be used along with Tylenol ES. 4. Remember that we all live with some "aches and pains". This is not unusual or uncommon after an injury or as we get older. a. Back pain is expected and may include muscle spasms for 4 to 6 weeks after surgery. The pain should gradually improve. If the pain worsens for no apparent reason, please contact the office. b. Intermittent leg pain may also be experienced and should not be concerned about unless it worsens for no apparent reason. If so, please contact the office. 5. We will provide appropriate medication within the normal guidelines of their prescribed use. We will also be very cautious and aware of potential abuse and extended duration of patients' medication needs. a. Pain medications are for your comfort and to assist with sleep and rest so that the tissue can heal. They are not provided in order to return to normal activity and should not be used through the day. To do so or worsening pain at night can result from ongoing tissue damage and development of tolerance to the prescribed medicine. 6. Please allow 2-3 days to process refills. Prescriptions will not be mailed but must be picked up at the office. FOLLOW UP VISIT: Keep your scheduled follow-up appointment. Any questions, please call the office at . Pending Studies at Discharge: No Stand-Alone Forms: My [facility] [employer], Smoking Cessation Medications and DC Order Prescriptions: New oxycodone 5 mg tablet 5 mg PO Q6H PRN (Reason: pain, severe) Qty: 30 RF: 0 tramadol 50 mg tablet 50 mg PO Q6H PRN (Reason: pain, moderate) Qty: 30 RF: 0 methylprednisolone [Medrol (Scooby)] 4 mg tablets,dose pack 1 mg PO DIRECTED Qty: 21 RF: 0 gabapentin 300 mg Capsule 300 mg PO TID Qty: 90 RF: 2 Continued tramadol 50 mg Tablet 50 mg PO Q8H PRN (Reason: Pain) RF: 0 oxycodone 5 mg Tablet 5 mg PO Q8H PRN (Reason: Pain) RF: 0 multivitamin [Daily Multi-Vitamin] tablet 1 tab PO QAM RF: 0 amlodipine 10 mg tablet 10 mg PO QAM RF: 0 losartan 100 mg tablet 100 mg PO QAM RF: 0 Discontinued ibuprofen 800 mg tablet 800 mg PO Q6H PRN (Reason: pain) Qty: 30 RF: 0 Discharge Orders: Discharge Order (Routine); Ordered 10/21/19 Ordered By: Terrence Blank/Other Patient Handouts: A1C Admission Data Admit Date/Time: 10/18/19 13:53 Attending Provider: Terrence Washington Admit Provider: Terrence Washington Primary Care Provider: Roula Zamarripa Other Providers: Megan Argueta Other Interventions: Discharge Summary Assessment (RN) Last Done: 10/21/19 10:43
== END 2019-10-21 13:18 | disposition home or self-care (01) | DRG 454 ==
LOC: ASU 08:34 → 3E 13:53

== ENCOUNTER 2024-07-11 05:24 | Observation (INO) ==
--- NOTE | 2024-06-13 11:30 | PAT Medication Instructions ---
Medication Instructions Date of Service June 13, 2024 Home Medications Medication Instructions Recorded amlodipine 10 mg tablet 10 mg PO QAM #90 tabs 11/24/23 losartan 100 mg tablet 100 mg PO QAM #90 tabs 11/24/23 atorvastatin 20 mg tablet 20 mg PO QPM #90 tabs 02/08/24 Medication List: multivitamin (Daily Multi-Vitamin tablet) 1 tab PO QAM amlodipine 10 mg tablet 10 mg PO QAM losartan 100 mg tablet 100 mg PO QAM atorvastatin 20 mg tablet 20 mg PO QPM chlorthalidone 25 mg tablet 25 mg PO QAM docusate sodium 100 mg capsule 100 mg PO QAM ibuprofen 800 mg tablet 800 mg PO TID PRN pain semaglutide 1 mg/dose (4 mg/3 mL) subcutaneous pen injector 1 mg subcut .weekly diabetes MEDICATION INSTRUCTIONS: ASK your surgeon for instructions ibuprofen 800 mg tablet 800 mg PO TID PRN pain DO NOT take the morning of surgery chlorthalidone 25 mg tablet 25 mg PO QAM losartan 100 mg tablet 100 mg PO QAM multivitamin (Daily Multi-Vitamin tablet) 1 tab PO QAM docusate sodium 100 mg capsule 100 mg PO QAM Take morning of surgery With a small sip of water, OTHERWISE NOTHING TO EAT OR DRINK AFTER MIDNIGHT: amlodipine 10 mg tablet 10 mg PO QAM Take evening before surgery atorvastatin 20 mg tablet 20 mg PO QPM Other Notes As instructed during RN phone call, last dose to be 07/01/24 of: semaglutide 1 mg/dose (4 mg/3 mL) subcutaneous pen injector 1 mg subcut .weekly diabetes If you have any questions please call us at [phone] or [phone] or [phone] or [phone]
--- NOTE | 2024-06-21 08:24 | Anesthesiology Consultation ---
Date of Service June 21, 2024 Assessment & Plan (1) Encounter for pre-operative examination: Chart Review Chart Review: Acceptable Risk for Surgery and Patient seen in Pre Admission Testing - Check BSG AM DOS - Last dose of Ozempic scheduled 07/01/24- will be off Ozempic x 10 days by DOS on 07/11/24 Pt currently scheduled as 23 hours observation. If surgeon decides to change patient to Same Day Joint, patient would be acceptable risk for NAOMI, pending patient is motivated, has good support and surgeon's office completes Same Day Joint Program preop requirements. Per PAT appt on 06/21/24, no recent illness/disease exposures, illness related symptoms, or recent illness/disease positive tests. Will leave to surgeon's discretion if preop Covid testing needed L4-S1 revision decompression/fusion 10/18/19= Done under [facility] with Grade 1 view with MAC #3. ETT #7.5. Teaching & Discussion Pre-Anesthesia Teaching/Discussion Notes: Instructed NPO after midnight before surgery,except medications with 15 cc of water. Medication instructions provided according to the PAT guidelines. History Surgery Operation Date: 07/11/24 11:10 Proposed Procedures p Right Total Hip Arthroplasty - Link Cervantes MD Height/Weight Height: 6 ft Weight: 152.5 kg Allergies Allergy/AdvReac Type Severity Reaction Status Date / Time lisinopril AdvReac Intermediate Cough Verified 06/13/24 08:39 Medications Home Medications Medication Instructions Recorded Confirmed Last Taken multivitamin (Daily Multi-Vitamin 1 tab PO QAM 08/16/19 06/13/24 10/17/19 08:00 tablet) amlodipine 10 mg tablet 10 mg PO QAM #90 tabs 11/24/23 06/13/24 Unknown losartan 100 mg tablet 100 mg PO QAM #90 tabs 11/24/23 06/13/24 Unknown atorvastatin 20 mg tablet 20 mg PO QPM #90 tabs 02/08/24 06/13/24 Unknown chlorthalidone 25 mg tablet 25 mg PO QAM 06/13/24 06/13/24 Unknown docusate sodium 100 mg capsule 100 mg PO QAM 06/13/24 06/13/24 Unknown ibuprofen 800 mg tablet 800 mg PO TID PRN pain 06/13/24 06/13/24 Unknown semaglutide 1 mg/dose (4 mg/3 mL) 1 mg subcut .weekly diabetes 06/13/24 06/13/24 06/10/24 subcutaneous pen injector Past Medical History Medical History (Updated 06/22/24 @ 16:12 by Cata Gabriel PA-C) Cervical radiculopathy Cervical spondylosis Chronic back pain Diabetes mellitus, type 2 Stable per patient History of anesthesia reaction - 2018 during colonoscopy at [facility], patient was woken up because the anesthesia provider "did not like the way I was breathing" and had the colonoscopy with no anesthesia. - this was prior to RONAK diagnosis per patient- most likely was having apnea episodes - patient has reported he has had other surgeries since this with no further issues. Hyperlipidemia Hypertension Morbid obesity Neurogenic claudication due to lumbar spinal stenosis Osteoarthritis Severe obstructive sleep apnea bipap at night Spinal stenosis Weakness of right lower extremity chronic - mild Exercise / Class Metabolic Activity II 4-5 Yardwork/Stairs/Walk up hill (one flight of stairs- no chest pain or SOB ) Past Family History Family History Mother Coronary heart disease Myocardial infarction Stroke Father Leukemia Hypertension Family history of diabetes mellitus Sister Breast cancer Denies family history of Ovarian cancer Prostate cancer Lung cancer Colorectal cancer Past Surgical History Surgical History History of colonoscopy last had at [facility] (2018) History of discectomy LUMBAR AREA X 2 (1999 and 2009) Hx of LASIK S/P epidural steroid injection Cervical injection 05/2023 S/P lumbar fusion (10/18/19) Revision decompression medial facetectomy foraminotomy L3-L4, L4-L5, L5-S1, posterior spinal fusion L4-L5, L5-S1, posterior instrumentation L4-L5-L5-S1 Past Anesthesia History No Hx of Anesthesia Complications (with exception to 2019 colonoscopy (had breathing issues)- patient states this is prior to RONAK diagnosis ) and No Family Hx of Anesthesia Complications History of PONV No Hx of PONV and No Hx of Motion Sickness Social History Smoking Status: Never smoker tobacco type: smokeless tobacco Do You Dip or Chew Tobacco: No (quit in 2021) Hx Alcohol Use: Yes Alcohol type: beer alcohol intake frequency: a few times a month Hx Substance Use: No substance use type: does not use Review of Systems Patient denies chest pain, shortness of breath, dyspnea on exertion, reflux, cough, wheezing, palpitations. No hx of seizures, stroke, [place]. No hx of blood clots or blood transfusions Physical Exam Vital Signs VITALS BP 131/80 P 75 TEMP 98.0 SP02 94% RESP 16 Constitutional no acute distress ENMT Mouth: no TMJ clicking Thyromental Distance: > or= 3.5 Finger Breadths (4.0) Mallampati Class: III Missing molars Neck neck extension not limited Respiratory normal respiratory effort; no respiratory distress Auscultation: lungs clear to auscultation bilaterally; no wheezes Cardiovascular Rate/Rhythm: regular rate and regular rhythm Heart Sounds: no murmur Vessels: no carotid bruit Musculoskeletal Spine: no pain with cervical ROM (chronic neck pain- no significant pain with extension since injection ) Extremities: extremities normal to inspection Psychiatric Orientation: alert Lab Results Anesthesia Preop Results Results Anesthesia Widget: WBC 9.73 K/ul (4.8-10.8) 06/21/24 Hgb 15.7 g/dl (14.0-18.0) 06/21/24 Hct 44.8 % (42.0-52.0) 06/21/24 Plt 344 K/uL (130-400) 06/21/24 Na 141 mmol/L (136-145) 06/21/24 K 3.9 mmol/L (3.5-5.1) 06/21/24 Cl 103 mmol/L (98-107) 06/21/24 CO2 31 mmol/L (21-32) 06/21/24 BUN 20 mg/dl (6-23) 06/21/24 Creat 0.86 mg/dl (0.6-1.4) 06/21/24 Glucose Level 103 mg/dl (70-99(Fasting)) H 06/21/24 PT 10.5 Seconds (9.0-12.0) 06/21/24 PTT 26 Seconds (21-31) 06/21/24 INR 1.0 (0.9-1.1) 06/21/24 HA1c 6.1 % (4.5-5.6) H 06/21/24 Blood Type O Positive 06/21/24 Antibody Screen NEGATIVE 06/21/24 Testing Electrocardiogram Date: 06/21/24 Findings: + NSR @ (70bpm) Cannot rule out inferior infarct, age undetermined When compared to EKG from September 29, 2019- no significant change was found per cardio Chest X-Ray Date: 06/21/24 Findings: + NAD
--- NOTE | 2024-07-08 11:56 | History & Physical Report ---
Date of Service July 08, 2024 Assessment & Plan (1) Arthritis of right hip: 58-year-old gentleman morbidly obese with multiple medical comorbidities status post 3 spine surgeries with advanced hip arthritis. His symptoms and his radiographs have progressed markedly over the past year. He is failed conservat ebony measures. Like to have his hip fixed. Plan: Working to take him to the operating room and do a right total hip replacement. The risks Mente this procedure explained in detail and the patient understands and informed consent was obtained. He is fully aware this is not can address his back problems. Hopefully will make the more manageable. Will plan him stay in the hospital overnight. Hopeful discharge postop day 1. Will use aspirin for DVT prophylaxis along with teds and SCDs. (2) Lumbar facet joint syndrome: (3) Lumbar post-laminectomy syndrome: (4) Diabetes mellitus, type 2: (5) Morbid obesity: (6) Severe obstructive sleep apnea: (7) Chronic back pain: History of Present Illness Chief Complaint: . Persistent right hip pain and discomfort. Primary Care Provider: Roula Zamarripa DO . The patient is a 58-year-old gentleman who presents for surgical treatment of his right hip he is got a long history of right hip and back problems and had 3 previous back operation done by Dr. Washington. The last 1 was several years ago. Over the past several years she has felt increased pain discomfort in his right hip and groin area. He has had an intra-articular injection which helped him markedly for a while. He had some subsequent injection which have not helped so much. Pains become more debilitating. He continues to have gout chronic back pain but would like his hip fixed. Allergies Allergy/AdvReac Type Severity Reaction Status Date / Time lisinopril AdvReac Intermediate Cough Verified 06/13/24 08:39 Home Medications Medication Instructions Recorded Confirmed Type multivitamin (Daily Multi-Vitamin 1 tab PO QAM 08/16/19 06/13/24 History tablet) amlodipine 10 mg tablet 10 mg PO QAM #90 tabs 11/24/23 06/13/24 Rx losartan 100 mg tablet 100 mg PO QAM #90 tabs 11/24/23 06/13/24 Rx atorvastatin 20 mg tablet 20 mg PO QPM #90 tabs 02/08/24 06/13/24 Rx chlorthalidone 25 mg tablet 25 mg PO QAM 06/13/24 06/13/24 History docusate sodium 100 mg capsule 100 mg PO QAM 06/13/24 06/13/24 History ibuprofen 800 mg tablet 800 mg PO TID PRN pain 06/13/24 06/13/24 History semaglutide 1 mg/dose (4 mg/3 mL) 1 mg subcut .weekly diabetes 06/13/24 06/13/24 History subcutaneous pen injector Past Med/Surg History Problem List Encounter for pre-operative examination Diabetes mellitus, type 2 Arthritis of right hip Osteoarthritis Lumbar post-laminectomy syndrome Lumbar facet joint syndrome Neuroforaminal stenosis of cervical spine Cervical spondylosis Metabolic syndrome Morbid obesity Severe obstructive sleep apnea BIPAP ABCC8-related familial hyperinsulinism, autosomal dominant Chronic back pain Hyperlipidemia Hypertension Lumbar disc disease Lumbar spinal stenosis Hx of colonic polyps Medical History History of anesthesia reaction - 2019 during colonoscopy at [facility], patient was woken up because the anesthesia provider "did not like the way I was breathing" and had the colonoscopy with no anesthesia. - this was prior to RONAK diagnosis per patient- most likely was having apnea episodes - patient has reported he has had other surgeries since this with no further issues. Spinal stenosis Morbid obesity Osteoarthritis Severe obstructive sleep apnea bipap at night Diabetes mellitus, type 2 Stable per patient Hyperlipidemia Hypertension Cervical spondylosis Chronic back pain Weakness of right lower extremity chronic - mild Cervical radiculopathy Neurogenic claudication due to lumbar spinal stenosis Surgical History S/P epidural steroid injection Cervical injection 05/2023 S/P lumbar fusion (10/18/19) Revision decompression medial facetectomy foraminotomy L3-L4, L4-L5, L5-S1, posterior spinal fusion L4-L5, L5-S1, posterior instrumentation L4-L5-L5-S1 History of discectomy LUMBAR AREA X 2 (1999 and 2009) Hx of LASIK History of colonoscopy last had at [facility] (2018) Family History Mother Coronary heart disease Myocardial infarction Stroke Father Leukemia Hypertension Family history of diabetes mellitus Sister Breast cancer Denies family history of Ovarian cancer Prostate cancer Lung cancer Colorectal cancer Social History Smoking Status: Never smoker Tobacco Type: Smokeless Tobacco (Dip or Chew) Age Started Using Tobacco: 13; Age Quit Using Tobacco: 56; Second Hand Exposure: Yes ( A CHILD); Do You Dip or Chew Tobacco: No (quit in 2021); Tobacco Cessation Education Requested by Patient: No Hx Alcohol Use: Yes Alcohol type: beer Hx Substance Use: No Preferred Language: [place] Islander Communication Ability: Effective Visual Impairment: No Limitations Hearing Ability: Hard of Hearing Radiotelephone Technical Operator Required: No Beliefs That Will Affect Care: None marital status: Current Living Situation: Spouse current occupational status: other current occupation: [employer] How many Children do You have: 3 Other Information That Helps Us Care for You: No Feels Safe at Home: Yes Safety Concerns: Feels Safe At This Time Childhood Exposure to Second-Hand Smoke: Yes Diet: regular Diet Comment: Regular caffeine: Yes during the past year weight has: remained stable Dental Care, Regularly: No Physical Activity Frequency: 1-2 Times per Week Seatbelt Use: always Sunscreen Use: No Assistive Devices: BiPap, Cane and Glasses Assistive Devices Comment: cane prn Review of Systems All systems reviewed & are unremarkable except as noted in HPI & below. Physical Exam . Physical examination reveals a large middle-age male. Looks in reasonably good health. Examination the right hip reveal patient walks with a bit of a limp. His leg lengths look pretty clinically equal. Is got a lot of stiffness with hip motion. He can internally rotate to neutral at best. This recreates his pain. No knee effusion. He is neurologically intact. Negative straight leg raise. Constitutional WD/WN, vitals as above Neck trachea midline, no thyromegaly Respiratory normal respiratory effort, lungs clear to auscultation Cardiovascular RRR, no murmur, no edema Gastrointestinal (Abdomen) normal bowel sounds, soft, nontender, no hepatosplenomegaly Results & Data Results & Data Laboratory Results . Diagnostic Findings . X-rays of the right hip from previously were reviewed. It shows a moderate to advanced right hip arthritis. We did get more recent films which showed a marked progression of his arthritis. Is got complete loss of the joint space now. Little flattening of the femoral head. Shows evidence of the previous spine surgery as well. PG Care Time/CCT Total # of Minutes Spent Total Time Spent with Patient: Total time spent is greater than 50% in coordination of care (as documented) at patient's floor/unit and/or counseling patient: Coding Level of Care Code None Diagnoses Arthritis of right hip M16.11 Lumbar facet joint syndrome M47.816 Lumbar post-laminectomy syndrome M96.1 Diabetes mellitus, type 2 E11.9 Morbid obesity E66.01 Severe obstructive sleep apnea G47.33 Chronic back pain M54.9; G89.29
[2024-07-11] MEDS: LR 500ML BOLUS, THEN 15ML/HR IV SCH (05:48)
[2024-07-11] MEDS: METOCLOPRAMIDE HCL 10 MG TABLET PO SCH (06:04)
[2024-07-11] MEDS: FAMOTIDINE 20 MG TAB PO SCH (06:04)
[2024-07-11] MEDS: ACETAMINOPHEN 500 MG TAB PO SCH ×2 (06:04→15:37)
[2024-07-11] MEDS: CeleBREX 200 MG CAP PO SCH (06:05)
[2024-07-11] MEDS: dexAMETHasone**PF** 10 MG/ML VIAL IV SCH (06:05)
[2024-07-11] MEDS ORDERED: PROPOFOL IV EMULSION 10 MG/ML 100 ML VIAL IV ONE (06:26)
[2024-07-11] MEDS ORDERED: ROPIVACAINE 0.5% 5 MG/ML 30 ML VIAL ONE (06:28)
[2024-07-11] MEDS ORDERED: MIDAZOLAM HCL 1 MG/ML 2ML VIAL ONE (06:29)
[2024-07-11] MEDS ORDERED: fentaNYL citrate PF 100 MCG/2 ML VIAL ONE (06:29)
[2024-07-11] MEDS ORDERED: KETAMINE HCL 10MG/ML SYR ONE (06:33)
[2024-07-11] MEDS ORDERED: KETOROLAC 30 MG/ML VIAL IV PRN (06:39)
[2024-07-11] MEDS ORDERED: ATROPINE SULFATE 0.1 MG/ML 10ML SYR IV PRN (06:39)
[2024-07-11] MEDS ORDERED: PROMETHAZINE HCL 6.25 MG in SODIUM CHLORIDE 0.9% 50 ML IV PRN (06:39)
[2024-07-11] MEDS ORDERED: LABETALOL HCL IV 5 MG/ML 20ML IV PRN (06:39)
[2024-07-11] MEDS ORDERED: ONDANSETRON INJ 2 MG/ML 2 ML VIAL IV PRN (06:39)
[2024-07-11] MEDS: TRANEXAMIC ACID / 0.7% NACL 1000MG/100ML BAG IV ONE (06:44)
[2024-07-11] MEDS: LR 60ML/HR IV SCH (06:44)
[2024-07-11] MEDS ORDERED: ROCURONIUM BROMIDE 10 MG/ML 5 ML VIAL IV ONE (06:45)
[2024-07-11] MEDS ORDERED: LIDOCAINE 2% 2 ML VIAL/AMP(20MG/ML) INFIL ONE (06:46)
--- NOTE | 2024-07-11 06:48 | History & Physical Bridge Note ---
Date of Service July 11, 2024 History & Physical Bridge Note I have examined the patient, reviewed the History & Physical and in the interval since the performance of the History & Physical I have noted the following changes of clinical significance: no changes noted
[2024-07-11] MEDS: ceFAZolin 3000MG 3,000 MG/72.5 ML BAG IV SCH (07:05)
[2024-07-11] MEDS ORDERED: ACETAMINOPHEN 1000 MG/100 ML IV IV ONE (07:21)
[2024-07-11] MEDS ORDERED: HYDROmorphone INJ 2 MG/ML SYR/VIAL ONE (07:26)
[2024-07-11] MEDS ORDERED: ONDANSETRON INJ 2 MG/ML 2 ML VIAL ONE (07:40)
[2024-07-11] MEDS ORDERED: DEXAMETHASONE SOD INJ 4 MG/ML VIAL ONE (07:40)
[2024-07-11] MEDS ORDERED: PROPOFOL IV EMULSION 10 MG/ML 20 ML VIAL IV ONE (07:41)
[2024-07-11] MEDS: BUPIVACAINE/EPINEPHRINE 0.5% MPF 1:200,000 30 ML VIAL ONE (07:42)
[2024-07-11] MEDS ORDERED: KETOROLAC 30 MG/ML VIAL ONE (08:38)
[2024-07-11] MEDS ORDERED: SUGAMMADEX SODIUM 200 MG/2 ML VIAL IV ONE ×2 (08:42→08:50)
--- NOTE | 2024-07-11 09:06 | Operative Report ---
PG Post Operative Report Pre & Post Diagnosis Operation Date: 07/11/24 07:00 Pre-Op Diagnosis: Right Hip Degenerative Joint Disease Post-Op Diagnosis: Right Hip Degenerative Joint Disease I identified the patient and participated in the time-out.: Yes Procedure Operation Date: 07/11/24 07:00 Actual Procedures p Right Total Hip Arthroplasty, Uncemented(Right) - Link Cervantes MD Surgeon Link Cervantes MD Mill Machinist Mario Aleman PA-C Estimated Blood Loss 200 Findings Consistent with Post-Op Diagnosis Operative findings revealed advanced right hip DJD. He had grade 4 [id number] disease of the femoral head and acetabulum. He did fairly thick very stiff soft tissue envelope. Very sclerotic hard bone. Specimens Right femoral head sent for pathology. Anesthesia Type General Complications none Disposition Accompanied Patient To Recovery: No Indications Patient is a 58-year-old gentleman who said a long history of orthopedic problems and back and hip pain over the years. Is been through extensive treatment in the past. He said 3 previous spine surgeries. Over the past year he has developed increased pain discomfort his right hip. He failed conservative measures. X-rays show advanced hip arthritis. He elected proceed with total hip arthroplasty. Description of Procedure Operative implants consist of: 1 Biomet G7 size 56 mm acetabular shell. 2. 6.5 cancellous acetabular screws 1 at 35 mm length and 125 mm length. 3. [place]dy[place]ps hole virtual classroom manager. 4. Highly cross-linked polyethylene liner with 56 mm outer diameter 40 mm diameter. 5. DePuy Corail size 11 KLA femoral stem. 6. +5/40 mm ceramic articular ball. The patient was taken the op room, identified, placed on the operating table in the supine position. All contact areas were appropriately padded. IV antibiotics were provided by the anesthesia team. General anesthetic was implemented as this patient's had 3 spine surgeries. He was then placed in the left lateral cubitus position. An axillary roll was placed. Distal Birkett position was used for positioning. The right hip and leg were then prepped and draped in usual sterile fashion. A posterolateral approach to the right hip was then performed to a curvilinear incision centered over the greater trochanter. Sharp dissection was Through subcutaneous tissue down to the IT band gluteal fascia but the IT band gluteal fascia incised longitudinally in line with skin incision. The underlying greater bursa was excised. The piriformis and external rotators along with the posterior hip joint capsule then released from the posterior aspect the hip as a single layer. Great care was taken throughout the procedure protect the sciatic nerve at all times. Hip was internally rotated and dislocated. Femoral neck osteotomy cut was made with a Final Cut about 15 mm above the lesser trochanter. Femoral head was removed and sent for pathology. The femur was retracted anteriorly. Attention was then drawn to the acetabulum. The acetabular labrum was excised. The pulmonary fat was excised. Sequential reaming the acetabulum was then performed beginning with size 47 and progressing up to a 55 DE reamed a little bit with a 56 reamer and then placed a 56 mm Biomet G7 acetabular shell in about 40 degrees lateral opening and 20 degrees of anteversion. It was fixed with two 6.5 screws. Trial liner was placed. A ttention drawn the femur. The proximal femur was entered with cookie-cutter followed by canal finder. I then broached beginning with a size 8 and progressed up to 11. He had excellent very strong cancellous bone bed. Fairly narrow canal distally. We elected to stop at the 11. We trialed the hip and the +5 articular ball provided full stability and appropriate soft tissue tension and leg lengths. We elect to place these implants. I did elect to use a 40 mm head to maximize his stability to his previous spine surgeries. All trial implants were removed. An apex hole virtual classroom manager was placed. Highly cross-linked polyethylene liner was placed. A size 11 KLA femoral stem was impacted in position. A +5/40 mm ceramic articular ball was placed. Hip was located and once again found to be stable. Attention drawn toward closing. The wound was irrigated close last pulsatile lavage solution. I did inject locally with 60 cc of half percent Marcaine with epinephrine. The posterior capsule and external rotators were then repaired through drill holes in the posterior trochanter with #2 Tycron suture. The IT band gluteal fascia then closed with #1 PDS suture in a running fashion. Subcutaneous tissues then closed with 2 layers of the deep layer #2 Vicryl suture in the subcutaneous tissues with 2-0 Dexon suture in a buried interrupted fashion. The skin was then closed with skin alma. A Prevena VAC dressing was applied. The patient then brought out of general anesthesia and transferred to the recovery room in stable condition. The patient tolerated the procedure well and there were no complications. Mario Aleman, my physician library circulation assistant, was present for the entire procedure. His assistance was essential and required for appropriate patient positioning, prepping and draping, surgical exposure, performing the technical details of the operation, placement the implants, closure of the wound, and placement of the sterile bandage. I attest to the content of the Intraoperative Record and any orders documented therein. Any exceptions are noted below.
[2024-07-11] MEDS ORDERED: ALBUTEROL HFA 8 GM INHALER INH ONE (09:09)
[2024-07-11] MEDS: HYDROmorphone INJ 1 MG/ML SYRINGE IV PRN (09:30)
--- NOTE | 2024-07-11 09:52 | XRay Report ---
XR hip 1V RT w pelvis CLINICAL HISTORY: IN PACU - Post Surgical COMPARISON: 07/17/2023 FINDINGS: Interval right hip prosthesis shows no hardware complication. There is expected soft tissu e gas. Skin alma are present laterally. IMPRESSION: Unremarkable postoperative exam. ACT 112: Negative or not required by law. Electronically signed by: Sanjay Madrigal M.D. 07/11/2024 9:51 AM
--- NOTE | 2024-07-11 11:49 | Anesthesiology Progress Note ---
Date of Service July 11, 2024 Anesthesia Post Procedure Vital Signs Vital Signs: Temp Pulse Pulse Resp BP BP Pulse Ox 07/11/24 11:30 82 20 119/69 92 07/11/24 11:00 85 14 137/76 95 07/11/24 10:45 88 14 150/76 H 95 07/11/24 10:30 88 17 143/78 H 94 07/11/24 10:15 97 H 18 158/76 H 95 07/11/24 10:00 88 20 125/79 93 07/11/24 09:50 89 16 157/58 H 93 07/11/24 09:40 90 19 155/70 H 92 07/11/24 09:30 36.6 C 86 18 161/86 H 92 07/11/24 09:20 88 14 138/76 92 07/11/24 09:10 89 20 141/80 H 92 07/11/24 09:04 36.6 C 92 H 18 160/79 H 91 07/11/24 05:45 36.8 C 78 20 147/87 H 95 O2 Del Method O2 Flow Rate 07/11/24 11:30 Nasal Cannula 3 07/11/24 11:00 Nasal Cannula 3 07/11/24 10:45 Nasal Cannula 3 07/11/24 10:30 Nasal Cannula 3 07/11/24 10:15 Nasal Cannula 4 07/11/24 10:00 Nasal Cannula 4 07/11/24 09:50 Nasal Cannula 4 07/11/24 09:40 Nasal Cannula 4 07/11/24 09:30 Nasal Cannula 4 07/11/24 09:20 Oxymask 5 07/11/24 09:10 Oxymask 5 07/11/24 09:04 Oxymask 5 07/11/24 05:45 Room Air Pain Intensity Right Hip: Pain Intensity: 4 Transfer of Care Handoff Completed per policy Notes Mental Status: alert / awake / arousable Patient Amnestic to Procedure: Yes Nausea / Vomiting: adequately controlled Pain: adequately controlled Airway Patency, RR, SpO2: stable & adequate BP & HR: stable & adequate Hydration State: stable & adequate Anesthetic Complications: no major complications apparent
[2024-07-11] MEDS ORDERED: GLUCOSE 10 TAB/TUBE PO PRN (11:55)
[2024-07-11] MEDS ORDERED: CARBOHYDRATES FOR HYPOGLYCEMIA PO PRN (11:55)
[2024-07-11] MEDS ORDERED: NON-FORMULARY MEDICATION (Semaglutide 1 mg/dose (4 mg/3 mL) pen injector) SQ SCH (11:55)
[2024-07-11] MEDS ORDERED: METOCLOPRAMIDE HCL INJ 5 MG/ML 2 ML VIAL IV PRN (11:55)
[2024-07-11] MEDS ORDERED: bisacodyL 10 MG SUPP PR PRN (11:55)
[2024-07-11] MEDS ORDERED: GLUCOSE 40% GEL 15 GM TUBE PO PRN (11:55)
[2024-07-11] MEDS ORDERED: NALOXONE HCL 0.4 MG/1 ML VIAL/CARP IV PRN (11:55)
[2024-07-11] MEDS ORDERED: ALUMINUM/MAGNESIUM SUSP 30 ML UDC PO PRN (11:55)
[2024-07-11] MEDS ORDERED: DOCUSATE SODIUM 100 MG CAP PO SCH (11:55)
[2024-07-11] MEDS ORDERED: GLUCAGON FOR INJ 1 MG VIAL SQ PRN (11:55)
[2024-07-11] MEDS ORDERED: ACETAMINOPHEN 1,000 MG/100 ML VIAL IV PRN (11:55)
[2024-07-11] MEDS ORDERED: PHARMACY GLYCEMIC MGMT CONSULT PRN (11:55)
[2024-07-11] MEDS ORDERED: MAGNESIUM HYDROXIDE SUSP 30 ML UDC PO PRN (11:55)
[2024-07-11] MEDS ORDERED: HYDROmorphone INJ 0.5 MG/0.5 ML SYR IV PRN (11:55)
[2024-07-11] MEDS ORDERED: DEXTROSE 50% 50 ML SYRINGE IV PRN (11:55)
[2024-07-11] MEDS ORDERED: TAMSULOSIN HCL 0.4 MG CAP PO PRN (11:55)
--- NOTE | 2024-07-11 12:26 | Pharmacy Report ---
Pharmacy Glycemic Short Note 2 - Date of Service July 11, 2024 - Glycemic Short BSG Results (Last 24 hours): 07/11/24 07/11/24 05:38 09:09 POC Glucose 128 H 182 H OUTPATIENT ANTIDIABETIC REGIMEN: * semaglutide 1mg SQ weekly HbA1c: 6.1% on 06/21/24 ASSESSMENT: * 58 year old male admitted today for a right total hip arthroplasty (POD#0). Pharmacy was consulted for glycemic management postop. * Preop BSG this morning was 128mg/dL. Patient did receive 10mg iv dexamethasone x 1 preop. Postop BSG was 153mg/dL. * Will not start basal insulin at this time and will start bolus insulin only with a conservative correction factor (no carb ratio) as he appears to be well controlled on semaglutide alone at home (appears to be using for weight loss mainly.) PLAN FOR INPATIENT GLYCEMIC CONTROL: * Hold outpatient medications * Basal insulin * none * Bolus insulin * NovoLog per scale ACHS or Q6hrs while NPO * Goal Range: Low 120 mg/dL - High 150 mg/dL * Correction Factor: 30 mg/dL/unit * Nutritional / Prandial insulin per carb ratio: NONE
[2024-07-11] MEDS: SENNA 8.6 MG TAB PO SCH (13:12)
[2024-07-11] MEDS: DOCUSATE SODIUM 100 MG CAP PO SCH (13:12)
[2024-07-11] MEDS: ASPIRIN 81 MG ECTAB PO SCH (13:13)
[2024-07-11] MEDS: KETOROLAC 30 MG/ML VIAL IV SCH (13:14)
[2024-07-11] MEDS: LOSARTAN POTASSIUM 50 MG TAB PO SCH (13:19)
[2024-07-11] MEDS: MULTIVITAMIN TAB PO SCH (13:19)
[2024-07-11] MEDS: CHLORTHALIDONE 25 MG TAB PO SCH (13:19)
[2024-07-11] MEDS: TRANEXAMIC ACID / 0.7% NACL 1,000 MG/100 ML BAG IV SCH (15:37)
[2024-07-11] MEDS: ceFAZolin 2000MG 2,000 MG/15 ML SYR IV SCH (17:04)
[2024-07-11] MEDS: INSULIN ASPART PER UNIT CHARGE SC SCH (17:13)
[2024-07-11] MEDS: ASCORBIC ACID 500 MG TAB PO SCH (17:47)
[2024-07-11] MEDS: ATORVASTATIN 20 MG TAB PO SCH (20:57)
[2024-07-11] MEDS ORDERED: SENNA 8.6 MG TAB PO SCH (21:00)
[2024-07-11] MEDS: oxyCODONE HCL IR 5 MG TAB (IMMEDIATE RELEASE) PO PRN (21:48)
[2024-07-12] MEDS: ONDANSETRON INJ 2 MG/ML 2 ML VIAL IV PRN (01:34)
[2024-07-12 04:31] VITALS: TEMP 98.4
[2024-07-12] MEDS ORDERED: BUPIVACAINE/EPINEPHRINE 0.5% MPF 1:200,000 30 ML VIAL ONE (06:43)
[2024-07-12] MEDS: amLODIPine BESYLATE 5 MG TAB PO SCH (08:05)
[2024-07-12] MEDS: dexAMETHasone 10 MG in SYRINGE 0 ML IV SCH (08:06)
[2024-07-12 08:44] VITALS: BP 137/65; PULSE 70; RESP 17; O2SAT 97
--- NOTE | 2024-07-12 08:51 | Orthopedic Progress Note ---
Date of Service July 12, 2024 Assessment & Plan (1) S/P total right hip arthroplasty: Pain controlled. He has a tens unit at home and might try that for his gluteal discomfort which is fine, just not sure how much that will help. Continue prevena dressing pain controlled dvt prophylaxis: teds, scd's aspirin PT/OT wbat, hip precautions d/c home today after therapy Subjective .58 year old patient POD 1 from right lynne. Doing well. Preop pain is gone. He has some discomfort in the right gluteal area. No other complaints. Review of Systems All systems reviewed & are unremarkable except as noted in HPI & below. Physical Exam . alert and oriented. NAD. VSS labs pending Right hip: dressing intact and vac working appropriately. Able to dorsiflex and plantarflex. NVI Results & Data Results & Data Laboratory Results . Diagnostic Findings . PG Care Time/CCT Total # of Minutes Spent Total Time Spent with Patient: Total time spent is greater than 50% in coordination of care (as documented) at patient's floor/unit and/or counseling patient: Coding Level of Care Code 37523 Post Operative Follow-Up Diagnoses S/P total right hip arthroplasty Z96.641
[2024-07-12 08:53] LABS: Basophils # (auto) 0.03 K/uL (0.00-0.20); Basophils % (auto) 0.3 %; Eosinophils # (auto) 0.02 K/uL (0.00-0.50); Eosinophils % (auto) 0.2 %; Hematocrit (blood only) 39.1 % (42.0-52.0); Hemoglobin 13.7 g/dl (14.0-18.0); Immature Granulocytes # (auto) 0.07 K/uL (0.01-0.20); Immature Granulocytes % (auto) 0.6 %; Lymphocytes # (auto) 2.73 K/uL (1.20-3.40); Lymphocytes % (auto) 23.9 %; Mean Corpuscular Volume 88.5 fL (80.0-100.0); Mean Platelet Volume 9.5 fL (9.4-12.4); Monocytes # (auto) 1.14 K/uL (0.11-0.59); Neutrophils # (auto) 7.44 K/uL (1.40-6.50); Platelet Count 330 K/uL (130-400); RDW Coefficient of Variation 14.3 % (11.5-14.5); RDW Standard Deviation 45.6 fL (36.4-46.3); Red Blood Count 4.42 M/uL (4.70-6.10); White Blood Count 11.43 K/ul (4.8-10.8)
[2024-07-12 09:26] LABS: Calcium 8.5 mg/dl (8.6-10.3); Potassium 3.3 mmol/L (3.5-5.1)
[2024-07-12 09:32] LABS: BUN Creatinine Ratio 26.4 (10-20); Creatinine Clr Calc Pharmacy 115.8 ml/min
--- NOTE | 2024-07-14 08:45 | Discharge Summary ---
Date of Service July 14, 2024 Admission HPI (Per Admitting) . The patient is a 58-year-old gentleman who presents for surgical treatment of his right hip he is got a long history of right hip and back problems and had 3 previous back operation done by Dr. Washington. The last 1 was several years ago. Over the past several years she has felt increased pain discomfort in his right hip and groin area. He has had an intra-articular injection which helped him markedly for a while. He had some subsequent injection which have not helped so much. Pains become more debilitating. He continues to have gout chronic back pain but would like his hip fixed. Admission Exam (Per Admitting) . Physical examination reveals a large middle-age male. Looks in reasonably good health. Examination the right hip reveal patient walks with a bit of a limp. His leg lengths look pretty clinically equal. Is got a lot of stiffness with hip motion. He can internally rotate to neutral at best. This recreates his pain. No knee effusion. He is neurologically intact. Negative straight leg raise. Principal Diagnosis Same as "Discharge Diagnosis" noted below under Discharge Instructions. Discharge Exam . alert and oriented. NAD. VSS labs pending Right hip: dressing intact and vac working appropriately. Able to dorsiflex and plantarflex. NVI Discharge Data Procedures Performed Operation Date: 07/11/24 07:00 Actual Procedures p Right Total Hip Arthroplasty, Uncemented(Right) - Link Cervantes MD Hospital Course (1) S/P total right hip arthroplasty: This is a 58 year old patient admitted on 07/11/24 and underwent total hip arthroplasty. He tolerated the procedure well and there were no complications. Transferred to the PACU post op and later to the orthopedic floor for further care. He was given ancef for antibiotic prophylaxis. He was also given ADELE stockings, SCDs, and aspirin for DVT prophylaxis. Hemoglobin, hematocrit, and vital signs were monitored during his hospital stay and remained stable. Did not require any blood transfusions. There were no complications during his hospital stay. By post op day #1 the patient was tolerating a diabetic diet, pain was reasonably controlled with oral pain medicine, and he was participating in physical therapy. On post op day #1 the patient was discharged home and set up with home health care. He was given printed discharge instructions including prescriptions for extra strength tylenol, aspirin, cefadroxil, zofran, oxycodone, senokot, and ketorolac. Continue hip precautions. Continue physical therapy, weight bearing as tolerated. Continue ADELE stockings. Follow up approximately 2 weeks post op or sooner if there are problems or concerns. PG Care Time/CCT Total # of Minutes Spent Total Time Spent with Patient: Total time spent is greater than 50% in coordination of care (as documented) at patient's floor/unit and/or counseling patient: Discharge Plan Discharge Items Patient Disposition: Home - Home Health Services Reason For Visit: Right Hip Osteoarthritis Discharge Diagnosis: Right HIp Replacement Activity: Per Instructions section Activity Comment: follow/Obey hip precautions at all times Weightbearing: Full weightbearing Weightbearing Comment: Weightbear as tolerated obeying hip precautions at all times. Non-emergency contact: Surgeon Call non-emergency contact if: you have any medication questions Follow-up/Referrals: Roula Zamarripa DO [Primary Care Provider] - Diet: Carb Consistent or DM2 Addtl Attending Provider Instructions: ACTIVITY RECOMMENDATIONS: Diet: * You may resume previous diet. Physical Therapy: * Aggressive physical therapy is not usually needed. You will learn to take care of yourself safely and walk. * Follow the "Hip Precautions Instructions." * In some cases, the social service liaison at the hospital will arrange to have a therapist come to your house for the first couple of weeks to help you learn these skills. * You need to practice on your own or with the help of a family member as needed. * When you learn these skills, most of the therapy can be done on your own. Home Exercise: * You were shown a series of exercises in the hospital. Do these exercises three to four times each day including the exercises you were shown in physical therapy. Walking: * Get up and walk several times each day. For the first four weeks, try not to stand or walk for more than one hour at a time. If you do stand or walk for more than one hour, you will not hurt anything, but your leg will likely swell. * As you feel comfortable, you may change from the walker or crutches to a cane and then to independent walking. MEDICATIONS: New Medicine: * You will likely be taking one or more of these medicines: 1. Oxycodone - Take, as directed, when you need it, every six hours to control your pain. 2. Aspirin - Thins your blood to lessen the chance of forming a blood clot. * The most common side effects of pain medicine and iron are nausea and constipation. If nausea or constipation is too much of a problem or if you have any questions about your new medicines or doses, call [facility] at . We will try to help you manage these issues. "VERY IMPORTANT TO READ AND REVIEW" Pain: * The immediate post-operative period after hip replacement surgery is often quite painful. * You are given a prescription for pain medicine. You should take it, as directed, when you need it, especially before physical therapy and before going to bed. Pain that interferes with sleep is very common and can last several months. * You will likely need pain medicine for the first two to four weeks. It will not stop all of the pain. The pain will lessen and as you feel better, you may change to milder pain medicine such as Tylenol. * The most common side effects of pain medicine are nausea and constipation, so don't take more than you need. SPECIAL CARE INSTRUCTIONS: TEDs/Elastic Stockings: * The white elastic stockings help limit swelling and prevent blood clots from forming in your legs. The more you wear them, the more they work. * Wear them for six weeks. Incision Site Care: * Remove dressing postoperative day 7. Keep direct shower pressure off the incision site. * After showering, cover alma with dry gauze and change daily or more frequently if the dressing is getting saturated with drainage. * May completely stop using bandage if wound is dry and no drainage * [place] are removed between 2 and 3 weeks post-op. If your follow-up appointment is made before 2 weeks, please have your appointment re- scheduled. It is too early to remove the alma. Prevention of Infection: * Take antibiotics one hour before any dental cleaning, dental work, urological procedure, gastrointestinal procedure or any invasive surgery in order to prevent your new joint from getting infected. * You may get the antibiotics from the doctor performing the procedure or you may call our office at before and we will call in a prescription to the pharmacy of your choice. Things to Watch For: * Drainage from the incision site that occurs more than one week after your surgery. * Severely increased leg pain or swelling. * Increased redness at the incision site. * Fever above 102 degrees Fahrenheit. * Unusual chest pain or shortness of breath. * Unusual pain or burning with urination. Call [facility] at with any of the above problems or if you have any questions about your medicines or recovery. FOLLOW UP VISIT: Make an appointment to see your doctor for approximately two weeks after surgery for a progress check and staple removal by calling the office at . Pending Studies at Discharge: No Stand-Alone Forms: My [facility], Smoking Cessation Medications and DC Order Prescriptions: Continued amlodipine 10 mg tablet 10 mg PO QAM Qty: 90 3RF oxycodone 5 mg tablet 5 - 10 mg PO Q6 PRN (Reason: pain) Qty: 40 0RF Rx Instructions: Take as needed for pain ondansetron 4 mg tablet,disintegrating 4 mg PO Q8 PRN (Reason: nausea) Qty: 20 1RF Rx Instructions: Take as needed for nausea sennosides [Senokot] 8.6 mg tablet 8.6 mg PO BID 14 Days Qty: 28 0RF Rx Instructions: Take two times a day to prevent/treat constipation acetaminophen [Tylenol Extra Strength] 500 mg tablet 1,000 mg PO TID 30 Days Qty: 180 0RF Rx Instructions: Take 3 times per day to lessen pain. aspirin [Mary Lou Low Dose Aspirin] 81 mg tablet,delayed release (DR/EC) 81 mg PO BID 45 Days Qty: 90 0RF Rx Instructions: Take to prevent blood clots. cefadroxil 500 mg capsule 500 mg PO BID 7 Days Qty: 14 0RF Rx Instructions: Take 1 cap twice a day to prevent infection multivitamin [Daily Multi-Vitamin] tablet 1 tab PO QAM docusate sodium [Colace] 100 mg Capsule 100 mg PO QAM chlorthalidone 25 mg tablet 25 mg PO QAM semaglutide 1 mg/dose (4 mg/3 mL) pen injector 1 mg subcut .weekly atorvastatin [Lipitor] 20 mg tablet 20 mg PO QPM losartan [Cozaar] 100 mg tablet 100 mg PO QAM Discontinued ibuprofen 800 mg tablet 800 mg PO TID PRN (Reason: pain) Krames/Other Patient Handouts: How Your Hip Works Admission Data Admit Date/Time: 07/11/24 09:00 Attending Provider: Link Cervantes Admit Provider: Link Cervantes Primary Care Provider: Roula Zamarripa Other Providers: [facility], [facility],Home Health Other Interventions: Discharge Summary Assessment (RN) Last Done: 07/12/24 10:16
== END 2024-07-12 10:35 | disposition home health service (06) ==
LOC: ASU 05:24 → PACUINP 05:24 → 3W 15:24
DX: I10 Essential (primary) hypertension; E66.01 Morbid (severe) obesity due to excess calories; M47.816 Spondylosis without myelopathy or radiculopathy, lumbar region; G89.29 Other chronic pain; Z88.8 Allergy status to other drugs, medicaments and biological substances; M54.9 Dorsalgia, unspecified; M16.11 Unilateral primary osteoarthritis, right hip; M96.1 Postlaminectomy syndrome, not elsewhere classified; Z68.41 Body mass index [BMI] 40.0-44.9, adult; Z79.82 Long term (current) use of aspirin; Z79.899 Other long term (current) drug therapy; G47.33 Obstructive sleep apnea (adult) (pediatric); E11.9 Type 2 diabetes mellitus without complications